=== PATIENT | female | born 1985 | race American Indian/Alaskan Native ===

== ENCOUNTER 2016-06-23 21:18 | Emergency (ER) | payer MEDICAID, OTHER ==
[2016-06-23 21:28] VITALS: BP 179/94
[2016-06-23] MEDS ORDERED: MVI, Adult with Vitamin K 10 ML, Thiamine 100 MG, Folic Acid 1 MG in Lactated Ringers 1... IV ONE ×4 (21:28)
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
[2016-06-23 22:05] LABS: CHLORIDE,CL 100 mmol/L (101-111); SODIUM,NA 141 mmol/L (135-145)
[2016-06-23 22:09] LABS: ACETAMINOPHEN < 10
[2016-06-23] MEDS ORDERED: Iopamidol 612 MG/ML 100 ML Bottle IVPUSH ONE (22:19)
== END 2016-06-23 23:49 | disposition home or self-care (01) ==
LOC: DL.ED 21:18
DX: R10.84 Generalized abdominal pain (principal); F15.10 Other stimulant abuse, uncomplicated; F10.10 Alcohol abuse, uncomplicated; F41.9 Anxiety disorder, unspecified; E66.9 Obesity, unspecified; Z79.899 Other long term (current) drug therapy; Z87.891 Personal history of nicotine dependence; Z91.09 Other allergy status, other than to drugs and biological substances
CPT/HCPCS: 36415; 74177; 80053; 80305; 81001; 81025; 82140; 82150; 83690; 83735; 85025; 96365; 99285; G0480; J3411; J7120; Q9967; J3490

== ENCOUNTER 2016-11-11 16:48 | Emergency (ER) | payer MEDICAID, OTHER ==
[2016-11-11] MEDS ORDERED: Albuterol/Ipratropium 3.0-0.5 MG/3 ML Neb Soln NEB ONE (16:55)
--- NOTE | 2016-11-11 16:56 | EDM.PDOC ---
ED HPI GENERAL MEDICAL PROBLEM - General Chief Complaint: General Stated Complaint: COUGHING Time Seen by Provider: 11/11/16 16:56 Source of Information: Reports: Patient History Limitations: Reports: No Limitations - History of Present Illness INITIAL COMMENTS - FREE TEXT/NARRATIVE: 31 yo Ste[place]ins Female c/o two weeks of cough also smokes cigarettes Onset Date: 10/28/16 Onset Time: 12:00 Duration: Day(s): Location: Reports: Chest Severity: Moderate Improves with: Reports: None Worsens with: Reports: None Associated Symptoms: Reports: Cough Bilateral Lower Chest Pain Score (Numeric/FACES): 5 - Related Data Allergies Allergy/AdvReac Type Severity Reaction Status Date / Time lactose Allergy Abdominal Verified 11/11/16 16:56 Cramps Home Meds: Home Meds Multivitamin W/Iron, Minerals [Compete] 1 tab PO DAILY 02/20/16 [History] Codeine/Promethazine [Phenergan with Codeine] 5 ml PO Q8H PRN 11/11/16 [History] Doxycycline [Vibramycin] 100 mg PO BID 11/11/16 [History] Past Medical History - Past Health History Medical/Surgical History: Denies Medical/Surgical History Psychiatric History: Reports: Anxiety Endocrine/Metabolic History: Reports: Obesity/BMI 30+ Dermatologic History: Reports: Other (See Below) Other Dermatologic History: alopecia - Infectious Disease History Infectious Disease History: Reports: Hepatitis C - Past Surgical History HEENT Surgical History: Reports: Other (See Below) GI Surgical History: Reports: Other (See Below) Social & Family History - Family History Family Medical History: Noncontributory - Tobacco Use Smoking Status *Q: Former Smoker Years of Tobacco use: 5 Packs/Tins Daily: 0.4 Used Tobacco, but Quit: Yes Month Tobacco Last Used: January 2016 Second Hand Smoke Exposure: Yes - Caffeine Use Caffeine Use: Reports: Energy Drinks Caffeine Use Comment: rarely - Alcohol Use Days Per Week of Alcohol Use: 1 Number of Drinks Per Day: 6 Total Drinks Per Week: 6 - Recreational Drug Use Recreational Drug Use: No Recreational Drug Type: Reports: Methamphetamine Recreational Drug Use Frequency: Rarely - Living Situation & Occupation Living situation: Reports: with Family ED ROS GENERAL - Review of Systems Review Of Systems: See Below Constitutional: Reports: No Symptoms HEENT: Reports: No Symptoms Respiratory: Reports: Cough Cardiovascular: Reports: No Symptoms Endocrine: Reports: No Symptoms GI/Abdominal: Reports: No Symptoms : Reports: No Symptoms Musculoskeletal: Reports: No Symptoms Skin: Reports: No Symptoms Neurological: Reports: No Symptoms Psychiatric: Reports: No Symptoms Hematologic/Lymphatic: Reports: No Symptoms Immunologic: Reports: No Symptoms ED EXAM, GENERAL - Physical Exam Exam: See Below Exam Limited By: No Limitations General Appearance: Alert, WD/WN, No Apparent Distress Eye Exam: Bilateral Eye: EOMI, PERRL Ears: Normal External Exam Nose: Normal Inspection Throat/Mouth: Normal Inspection Head: Atraumatic Neck: Normal Inspection Respiratory/Chest: No Accessory Muscle Use, Rhonchi Cardiovascular: Normal Peripheral Pulses GI/Abdominal: Normal Bowel Sounds Back Exam: Normal Inspection Extremities: Normal Inspection Neurological: Alert, Oriented, CN II-XII Intact Psychiatric: Normal Affect Skin Exam: Warm, Dry Lymphatic: No Adenopathy Course - Vital Signs Last Recorded V/S: Last Vital Signs Temp 36.6 C 11/11/16 16:58 Pulse 98 11/11/16 17:06 Resp 18 11/11/16 16:58 BP 129/82 11/11/16 16:58 Pulse Ox 98 11/11/16 16:58 - Orders/Labs/Meds Orders: Active Orders 24 hr Category Date Time Status RT Aerosol Therapy [RC] ASDIRECTED Care 11/11/16 16:56 Active Chest 2V [CR] Urgent Exams 11/11/16 16:55 Taken Meds: Medications Discontinued Medications Generic Name Dose Route Start Last Admin Trade Name Javi PRN Reason Stop Dose Admin Albuterol/Ipratropium 3 ml 11/11/16 16:55 11/11/16 17:05 Duoneb 3.0-0.5 Mg/3 Ml NEB 11/11/16 16:56 3 ml ONETIME ONE Administration Azithromycin 500 mg 11/11/16 17:19 Zithromax PO 11/11/16 17:20 ONETIME ONE Departure - Departure Time of Disposition: 17:22 Disposition: Home, Self-Care 01 Condition: Good Clinical Impression: Bronchitis, Tobacco abuse - Discharge Information Forms: ED Department Discharge Additional Instructions: Stop Smoking Increase intake of Water and Juice Take Medication as prescribed only: Zithromax 250mg QD #4 Mucinex 600mg BID # 30 ProAir MDI 2puffs Q 4hrs. F/U w/ PCP - My Orders Last 24 Hours: My Active Orders 11/11/16 16:55 Chest 2V [CR] Urgent 11/11/16 16:56 RT Aerosol Therapy [RC] ASDIRECTED - Assessment/Plan Last 24 Hours: My Active Orders 11/11/16 16:55 Chest 2V [CR] Urgent 11/11/16 16:56 RT Aerosol Therapy [RC] ASDIRECTED
[2016-11-11 17:03] VITALS: BP 129/82
[2016-11-11] MEDS ORDERED: Azithromycin 250 MG Tab PO ONE (17:19)
== END 2016-11-11 17:37 | disposition home or self-care (01) ==
LOC: DL.ED 16:48
DX: J40 Bronchitis, not specified as acute or chronic (principal); E11.9 Type 2 diabetes mellitus without complications; F41.9 Anxiety disorder, unspecified; Z72.0 Tobacco use; Z91.011 Allergy to milk products; Z79.899 Other long term (current) drug therapy; Z87.891 Personal history of nicotine dependence
CPT/HCPCS: 71020; 94640; 99284; A9270

== ENCOUNTER 2017-02-22 21:58 | Emergency (ER) | payer MEDICAID, OTHER ==
[2017-02-22 22:05] VITALS: BP 157/96
[2017-02-22] MEDS ORDERED: Bacitracin Oint 1 GM U/D Packet TOP ONE (22:16)
[2017-02-22] MEDS ORDERED: Lidocaine 1% 30 ML SDV INJECT ONE (22:16)
[2017-02-22] MEDS ORDERED: Diphtheria,Pertussis(Acell),Tetanus Vaccine 0.5 ML SDV IM ONE (22:16)
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
[2017-02-22] MEDS ORDERED: Amoxicillin/Clavulanate K 875-125 MG Tab PO ONE (23:02)
== END 2017-02-22 23:16 | disposition home or self-care (01) ==
LOC: DL.ED 21:58
DX: S81.852A Open bite, left lower leg, initial encounter (principal); S81.851A Open bite, right lower leg, initial encounter; F17.210 Nicotine dependence, cigarettes, uncomplicated; Z23 Encounter for immunization; Z91.018 Allergy to other foods; W54.0XXA Bitten by dog, initial encounter
CPT/HCPCS: 12005; 90471; 90715; 99283; A9270; 12032

== ENCOUNTER 2017-03-06 15:30 | Emergency (ER) | payer MEDICAID, OTHER ==
[2017-03-06 15:48] VITALS: BP 159/61
--- NOTE | 2017-03-06 16:42 | EDM.PDOC ---
ED HPI GENERAL MEDICAL PROBLEM - General Chief Complaint: Wound Recheck Stated Complaint: [id number] DOG BITE Time Seen by Provider: 03/06/17 15:55 Source of Information: Reports: Patient History Limitations: Reports: No Limitations - History of Present Illness INITIAL COMMENTS - FREE TEXT/NARRATIVE: This 31 yo female patient reports to the ED to get her sutures removed. The patient was bitten by a dog 12 days ago and has not been able to get into the clinic to have the sutures removed. The patient reports that she took the antibiotics as directed. Onset: Today Location: Reports: Lower Extremity, Left, Lower Extremity, Right Quality: Reports: Ache, Dull Severity: Moderate Improves with: Reports: None Worsens with: Reports: None Associated Symptoms: Reports: No Other Symptoms Bilateral Lower Pain Score (Numeric/FACES): 7 - Related Data Allergies Allergy/AdvReac Type Severity Reaction Status Date / Time lactose Allergy Abdominal Verified 02/22/17 22:05 Cramps Home Meds: Home Meds . [No Known Home Meds] 03/06/17 [History] Past Medical History - Past Health History Medical/Surgical History: Denies Medical/Surgical History Psychiatric History: Reports: Anxiety Endocrine/Metabolic History: Reports: Obesity/BMI 30+ Dermatologic History: Reports: Other (See Below) Other Dermatologic History: alopecia - Infectious Disease History Infectious Disease History: Reports: Hepatitis C - Past Surgical History HEENT Surgical History: Reports: Other (See Below) GI Surgical History: Reports: Other (See Below) Social & Family History - Family History Family Medical History: Noncontributory - Tobacco Use Smoking Status *Q: Current Every Day Smoker Years of Tobacco use: 3 Packs/Tins Daily: 0.5 Used Tobacco, but Quit: Yes Month Tobacco Last Used: January 2016 Second Hand Smoke Exposure: Yes - Caffeine Use Caffeine Use: Reports: Coffee, Energy Drinks, Tea Caffeine Use Comment: rarely - Alcohol Use Days Per Week of Alcohol Use: 1 Number of Drinks Per Day: 6 Total Drinks Per Week: 6 - Recreational Drug Use Recreational Drug Use: No Recreational Drug Type: Reports: Methamphetamine Recreational Drug Use Frequency: Rarely - Living Situation & Occupation Living situation: Reports: with Family ED ROS GENERAL - Review of Systems Review Of Systems: ROS reveals no pertinent complaints other than HPI. ED EXAM, SKIN/RASH Exam: See Below Exam Limited By: No Limitations General Appearance: Alert, WD/WN, Mild Distress Eye Exam: Bilateral Eye: EOMI, Normal Inspection, PERRL Ears: Normal External Exam, Normal Canal, Hearing Grossly Normal, Normal TMs Nose: Normal Inspection, Normal Mucosa, No Blood Throat/Mouth: Normal Inspection, Normal Lips, Normal Teeth, Normal Gums, Normal Oropharynx, Normal Voice, No Airway Compromise Head: Atraumatic, Normocephalic Neck: Normal Inspection, Supple, Non-Tender, Full Range of Motion Respiratory/Chest: No Respiratory Distress, Lungs Clear, Normal Breath Sounds, No Accessory Muscle Use, Chest Non-Tender Cardiovascular: Normal Peripheral Pulses, Regular Rate, Rhythm, No Edema, No Gallop, No JVD, No Murmur, No Rub GI/Abdominal: Normal Bowel Sounds, Soft, Non-Tender, No Organomegaly, No Distention, No Abnormal Bruit, No Mass (Female) Exam: Deferred Rectal (Female) Exam: Deferred Back Exam: Normal Inspection, Full Range of Motion, NT Neurological: Alert, Oriented, CN II-XII Intact, Normal Cognition, Normal Gait, Normal Reflexes, No Motor/Sensory Deficits Skin: Erythema, Increased Warmth Location, Skin: Lower Extremity, Right, Lower Extremity, Left Characteristics: Erythematous Associated features: Warmth, Tenderness Lymphatic: No Adenopathy Comments: Sutures were removed with some purulent drainage from the wound. After the sutures were removed, steri-strips were placed over the wounds. Course - Vital Signs Last Recorded V/S: Last Vital Signs Temp 36.9 C 03/06/17 15:46 Pulse 105 H 03/06/17 15:46 Resp 16 03/06/17 15:46 BP 159/61 H 03/06/17 15:46 Pulse Ox 99 03/06/17 15:46 Departure - Departure Time of Disposition: 16:40 Disposition: Home, Self-Care 01 Condition: Fair Clinical Impression: Visit for suture removal Cellulitis Qualifiers: Site of cellulitis: extremity Site of cellulitis of extremity: lower extremity Laterality: unspecified laterality Qualified Code(s): L03.119 - Cellulitis of unspecified part of limb - Discharge Information Instructions: Suture Removal, Care After Care Plan Goals: The patient was advised of the examination results during the visit. The sutures were removed without incident. The patient was given a script for clindamycin (300 mg) to take 1 by mouth 4 times per day for 10 days. If the patient has any additional symptoms or further concerns, the patient should visit her primary care facility or return to the ED.
== END 2017-03-06 17:15 | disposition home or self-care (01) ==
LOC: DL.ED 15:30
DX: S81.812D Laceration without foreign body, left lower leg, subsequent encounter (principal); L03.116 Cellulitis of left lower limb; F17.210 Nicotine dependence, cigarettes, uncomplicated; Z91.011 Allergy to milk products; W54.0XXD Bitten by dog, subsequent encounter
CPT/HCPCS: 99281

== ENCOUNTER 2017-03-30 21:00 | Emergency (ER) | payer OTHER ==
[2017-03-30] MEDS ORDERED: Sulfamethoxazole/Trimethoprim 800-160 MG Tab PO ONE (21:01)
[2017-03-30] MEDS ORDERED: Cephalexin 500 MG Cap PO ONE (21:01)
[2017-03-30] MEDS ORDERED: diphenhydrAMINE 50 MG/ML SDV IVPUSH ONE (21:40)
--- NOTE | 2017-03-30 21:41 | EDM.PDOC ---
ED HPI GENERAL MEDICAL PROBLEM - General Chief Complaint: Skin Complaint Stated Complaint: DOG BITES ON LEG, [id number] Time Seen by Provider: 03/30/17 21:15 Source of Information: Reports: Patient History Limitations: Reports: No Limitations - History of Present Illness INITIAL COMMENTS - FREE TEXT/NARRATIVE: ED ambulatory with sister. C/O pain and swelling to left calf, Notes wound from dog bite one moth ago increasing in size. Sister notes patient had been doing dressing changes up to about week ago and stopped. Had been on antibiotics and recently out also. Has not been seen in clinic for follow up. Left Lower Leg Pain Score (Numeric/FACES): 6 - Related Data Allergies Allergy/AdvReac Type Severity Reaction Status Date / Time lactose Allergy Abdominal Verified 03/30/17 21:18 Cramps Home Meds: Home Meds . [No Known Home Meds] 03/06/17 [History] Past Medical History - Past Health History Medical/Surgical History: Denies Medical/Surgical History Psychiatric History: Reports: Anxiety Endocrine/Metabolic History: Reports: Obesity/BMI 30+ Dermatologic History: Reports: Other (See Below) Other Dermatologic History: alopecia - Infectious Disease History Infectious Disease History: Reports: Hepatitis C - Past Surgical History HEENT Surgical History: Reports: Other (See Below) GI Surgical History: Reports: Other (See Below) Social & Family History - Family History Family Medical History: Noncontributory - Tobacco Use Smoking Status *Q: Current Every Day Smoker Years of Tobacco use: 15 Packs/Tins Daily: 0.3 Used Tobacco, but Quit: Yes Month Tobacco Last Used: January 2016 Second Hand Smoke Exposure: Yes - Caffeine Use Caffeine Use: Reports: None Caffeine Use Comment: rarely - Alcohol Use Days Per Week of Alcohol Use: 2 Number of Drinks Per Day: 6 Total Drinks Per Week: 12 - Recreational Drug Use Recreational Drug Use: No Recreational Drug Type: Reports: Methamphetamine Recreational Drug Use Frequency: Rarely - Living Situation & Occupation Living situation: Reports: with Family ED ROS GENERAL - Review of Systems Review Of Systems: See Below Constitutional: Reports: Fever HEENT: Reports: No Symptoms Respiratory: Reports: No Symptoms Cardiovascular: Reports: No Symptoms GI/Abdominal: Reports: Constipation : Reports: No Symptoms Musculoskeletal: Reports: Leg Pain (left calf) Skin: Reports: Wound (left claf, previous dog bite) Neurological: Reports: No Symptoms ED EXAM, SKIN/RASH Exam: See Below Exam Limited By: No Limitations General Appearance: Alert, No Apparent Distress, Other (intoxicated, storng odor ETOH) Ears: Normal External Exam Nose: Nasal Deformity Throat/Mouth: Normal Inspection Head: Atraumatic, Normocephalic Neck: Normal Inspection, Full Range of Motion Respiratory/Chest: No Respiratory Distress, Lungs Clear, Normal Breath Sounds Cardiovascular: Normal Peripheral Pulses, Regular Rate, Rhythm GI/Abdominal: Normal Bowel Sounds, Soft Extremities: Leg Pain Neurological: Alert, Oriented, Normal Cognition Psychiatric: Normal Affect Skin: Warm, Dry, Wound/Incision (3 2x2cm crater wounds, crusted, scant yellow discharge foul odor mild surrounding erythema, no streaking, minimal swelling of posterior calf ) Associated features: Tenderness, Crusting, Weeping Course - Vital Signs Last Recorded V/S: Last Vital Signs Temp 97.9 F 03/30/17 23:30 Pulse 96 03/30/17 23:30 Resp 18 03/30/17 23:30 BP 139/84 03/30/17 23:30 Pulse Ox 97 03/30/17 23:30 - Orders/Labs/Meds Orders: Active Orders 24 hr Category Date Time Status CULTURE BLOOD [BC] Stat Lab 03/30/17 21:45 Received CULTURE BLOOD [BC] Stat Lab 03/30/17 21:50 Received CULTURE WOUND [RM] Stat Lab 03/30/17 21:35 Received Blood Culture x2 Reflex Set [OM.PC] Stat Oth 03/30/17 21:39 Ordered Labs: Laboratory Tests 03/30/17 03/30/17 03/30/17 Range/Units 21:45 21:45 21:45 WBC 6.0 (5.0-10.0) 10^3/uL RBC 4.31 (4.2-5.4) 10^6/uL Hgb 12.7 (12.0-16.0) g/dL Hct 38.6 (37.0-47.0) % MCV 89.6 D (80-100) fL MCH 29.5 (27.0-34.0) pg MCHC 32.9 L (33.0-35.0) g/dL Plt Count 335 D (150-450) 10^3/uL Neut % (Auto) 37.5 L (42.2-75.2) % Lymph % (Auto) 55.1 H (20.5-50.1) % [place] % (Auto) 4.5 (2-8) % Eos % (Auto) 2.2 (1.0-3.0) % Baso % (Auto) 0.7 (0.0-1.0) % Sodium 141 (135-145) mmol/L Potassium 3.5 L (3.6-5.0) mmol/L Chloride 104 (101-111) mmol/L Carbon Dioxide 24.0 (21.0-31.0) mmol/L Anion Gap 16.5 BUN 8 (7-18) mg/dL Creatinine 0.6 (0.6-1.3) mg/dL Est Cr Clr Drug Dosing 118.68 mL/min Estimated GFR (MDRD) > 60 BUN/Creatinine Ratio 13.33 Glucose 117 H (74-105) mg/dL Lactic Acid 2.2 (0.5-2.2) mmol/L Calcium 8.8 (8.4-10.2) mg/dl Magnesium 1.8 (1.8-2.5) mg/dL Total Bilirubin 0.6 (0.2-1.0) mg/dL AST 43 H (10-42) IU/L ALT 35 (10-60) IU/L Alkaline Phosphatase 107 (42-121) IU/L Total Protein 7.8 (6.7-8.2) g/dl Albumin 4.4 (3.2-5.5) g/dl Globulin 3.4 Albumin/Globulin Ratio 1.29 Urine Color (YELLOW) Urine Appearance (CLEAR) Urine pH (5.0-9.0) Ur Specific [place] (1.005-1.030) Urine Protein (NEGATIVE) Urine Glucose (UA) (NEGATIVE) Urine Ketones (NEGATIVE) Urine Occult Blood (NEGATIVE) Urine Nitrite (NEGATIVE) Urine Bilirubin (NEGATIVE) Urine Urobilinogen (0.2-1.0) mg/dL Ur Leukocyte Esterase (NEGATIVE) Urine RBC /HPF Urine WBC (0-5/HPF) /HPF Ur Epithelial Cells /HPF Urine Bacteria (0-FEW/HPF) /HPF Urine Opiates Screen (NEGATIVE) Ur Oxycodone Screen (NEGATIVE) Urine Methadone Screen (NEGATIVE) Ur Barbiturates Screen (NEGATIVE) U Tricyclic Antidepress (NEGATIVE) Ur Phencyclidine Scrn (NEGATIVE) Ur Amphetamine Screen (NEGATIVE) U Methamphetamines Scrn (NEGATIVE) Urine MDMA Screen (NEGATIVE) U Benzodiazepines Scrn (NEGATIVE) Urine Cocaine Screen (NEGATIVE) U Marijuana (THC) Screen (NEGATIVE) Ethyl Alcohol 357 mg/dL 03/30/17 03/30/17 Range/Units 21:59 21:59 WBC (5.0-10.0) 10^3/uL RBC (4.2-5.4) 10^6/uL Hgb (12.0-16.0) g/dL Hct (37.0-47.0) % MCV (80-100) fL MCH (27.0-34.0) pg MCHC (33.0-35.0) g/dL Plt Count (150-450) 10^3/uL Neut % (Auto) (42.2-75.2) % Lymph % (Auto) (20.5-50.1) % [place] % (Auto) (2-8) % Eos % (Auto) (1.0-3.0) % Baso % (Auto) (0.0-1.0) % Sodium (135-145) mmol/L Potassium (3.6-5.0) mmol/L Chloride (101-111) mmol/L Carbon Dioxide (21.0-31.0) mmol/L Anion Gap BUN (7-18) mg/dL Creatinine (0.6-1.3) mg/dL Est Cr Clr Drug Dosing mL/min Estimated GFR (MDRD) BUN/Creatinine Ratio Glucose (74-105) mg/dL Lactic Acid (0.5-2.2) mmol/L Calcium (8.4-10.2) mg/dl Magnesium (1.8-2.5) mg/dL Total Bilirubin (0.2-1.0) mg/dL AST (10-42) IU/L ALT (10-60) IU/L Alkaline Phosphatase (42-121) IU/L Total Protein (6.7-8.2) g/dl Albumin (3.2-5.5) g/dl Globulin Albumin/Globulin Ratio Urine Color Yellow (YELLOW) Urine Appearance Clear (CLEAR) Urine pH 6.0 (5.0-9.0) Ur Specific [place] 1.015 (1.005-1.030) Urine Protein Trace H (NEGATIVE) Urine Glucose (UA) Negative (NEGATIVE) Urine Ketones Negative (NEGATIVE) Urine Occult Blood Negative (NEGATIVE) Urine Nitrite Negative (NEGATIVE) Urine Bilirubin Negative (NEGATIVE) Urine Urobilinogen 0.2 (0.2-1.0) mg/dL Ur Leukocyte Esterase Negative (NEGATIVE) Urine RBC 0-5 /HPF Urine WBC 0-5 (0-5/HPF) /HPF Ur Epithelial Cells Few /HPF Urine Bacteria Few (0-FEW/HPF) /HPF Urine Opiates Screen Negative (NEGATIVE) Ur Oxycodone Screen Negative (NEGATIVE) Urine Methadone Screen Negative (NEGATIVE) Ur Barbiturates Screen Negative (NEGATIVE) U Tricyclic Antidepress Negative (NEGATIVE) Ur Phencyclidine Scrn Negative (NEGATIVE) Ur Amphetamine Screen Negative (NEGATIVE) U Methamphetamines Scrn Positive H (NEGATIVE) Urine MDMA Screen Negative (NEGATIVE) U Benzodiazepines Scrn Negative (NEGATIVE) Urine Cocaine Screen Negative (NEGATIVE) U Marijuana (THC) Screen Negative (NEGATIVE) Ethyl Alcohol mg/dL Meds: Medications Discontinued Medications Generic Name Dose Route Start Last Admin Trade Name Javi PRN Reason Stop Dose Admin Cephalexin Confirm 03/30/17 23:24 03/30/17 23:38 Keflex Administered 03/30/17 23:25 Not Given Dose 1,500 mg .ROUTE .STK-MED ONE Diphenhydramine HCl 25 mg 03/30/17 21:40 03/30/17 21:52 Benadryl IVPUSH 03/30/17 21:41 25 mg ONETIME ONE Administration Vancomycin HCl 1 gm/ Sodium 250 mls @ 167 mls/hr 03/30/17 21:39 03/30/17 22: 52 Chloride IV 03/30/17 23:08 Not Given ONETIME ONE Piperacillin Sod/Tazobactam 100 mls @ 200 mls/hr 03/30/17 22:10 03/30/17 22: 22 Sod 3.375 gm/ Sodium Chloride IV 03/30/17 22:39 200 mls/hr ONETIME ONE Administration Trimethoprim/Sulfamethoxazole Confirm 03/30/17 23:24 03/30/17 23:38 Septra Ds Administered 03/30/17 23:25 Not Given Dose 2 tab .ROUTE .STK-MED ONE - Re-Assessments/Exams Free Text/Narrative Re-Assessment/Exam: 03/31/17 00:22 wounds cleansed, culture obtained, moist dressing placed by nursing. Instructions to patient and to sister to redress at least twice daily and to follow up in clinic on Saturday. Depth of wound appears to be increasing and Sister informed she may need more extensive debridement and wound care follow up if antibiotic and resuming dressing changes does not improve area. Sister acknowledges, and relates she will have her in to clinic on Saturday. Departure - Departure Time of Disposition: 23:08 Disposition: Home, Self-Care 01 Condition: Fair Clinical Impression: Alcohol abuse, Open wound Dog bite Qualifiers: Encounter type: initial encounter Qualified Code(s): W54.0XXA - Bitten by dog, initial encounter Cellulitis Qualifiers: Site of cellulitis: extremity Site of cellulitis of extremity: lower extremity Laterality: unspecified laterality Qualified Code(s): L03.119 - Cellulitis of unspecified part of limb - Discharge Information Instructions: Wound Infection, [id number] Referrals: Johnny Garcia [Primary Care Provider] - Forms: ED Department Discharge Additional Instructions: moist dressing change twice daily Clinic follow up on Saturday to recheck wounds urgent follow up if increased redness swelling drainage Bactrim DS one twice daily for 7 days Keflex 500mg 4 times daily for 7days tylenol or ibuprofen for discomfort - My Orders Last 24 Hours: My Active Orders 03/30/17 21:35 CULTURE WOUND [RM] Stat 03/30/17 21:39 Blood Culture x2 Reflex Set [OM.PC] Stat 03/30/17 21:45 CULTURE BLOOD [BC] Stat 03/30/17 21:50 CULTURE BLOOD [BC] Stat - Assessment/Plan Last 24 Hours: My Active Orders 03/30/17 21:35 CULTURE WOUND [RM] Stat 03/30/17 21:39 Blood Culture x2 Reflex Set [OM.PC] Stat 03/30/17 21:45 CULTURE BLOOD [BC] Stat 03/30/17 21:50 CULTURE BLOOD [BC] Stat
[2017-03-30] MEDS ORDERED: Piperacillin/Tazobactam 3.375 GM in Sodium Chloride 0.9% 100 ML IV ONE (22:10)
[2017-03-30 22:24] LABS: CHLORIDE,CL 104 mmol/L (101-111); SODIUM,NA 141 mmol/L (135-145)
[2017-03-30] MEDS ORDERED: Cephalexin 500 MG Cap ONE (23:24)
[2017-03-30] MEDS ORDERED: Sulfamethoxazole/Trimethoprim 800-160 MG Tab ONE (23:24)
[2017-03-30 23:39] VITALS: BP 139/84
== END 2017-03-30 23:32 | disposition home or self-care (01) ==
LOC: DL.ED 21:00
DX: S81.852A Open bite, left lower leg, initial encounter (principal); L03.116 Cellulitis of left lower limb; F10.10 Alcohol abuse, uncomplicated; F17.210 Nicotine dependence, cigarettes, uncomplicated; Z91.011 Allergy to milk products; W54.0XXA Bitten by dog, initial encounter
CPT/HCPCS: 36415; 80053; 80305; 81001; 83605; 83735; 85025; 87040; 87070; 96365; 96375; 99284; G0480; J1200; J2543; J7050; 87077; 87186; A9270-GY

== ENCOUNTER 2017-04-27 06:40 | Emergency (ER) | payer OTHER ==
[2017-04-27 06:53] VITALS: BP 131/71
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
[2017-04-27] MEDS ORDERED: Sodium Chloride 0.9% 10 ML Syringe FLUSH PRN (07:15)
[2017-04-27 08:19] LABS: ANION GAP 10.5; CHLORIDE,CL 102 mmol/L (101-111); SODIUM,NA 131 mmol/L (135-145)
[2017-04-27] MEDS ORDERED: Iopamidol 612 MG/ML 100 ML Bottle IVPUSH ONE (08:54)
[2017-04-27] MEDS ORDERED: Ketorolac 30 MG/ML SDV IVPUSH ONE (09:39)
== END 2017-04-27 10:06 | disposition home or self-care (01) ==
LOC: DL.ED 06:40
DX: S30.1XXA Contusion of abdominal wall, initial encounter (principal); F17.210 Nicotine dependence, cigarettes, uncomplicated; Z91.011 Allergy to milk products; Y09 Assault by unspecified means
CPT/HCPCS: 36415; 71111; 74177; 80053; 80305; 81001; 81025; 85025; 96374; 99284; J1885; J7050; Q9967

== ENCOUNTER 2018-07-15 19:19 | Emergency (ER) | payer MEDICAID, OTHER ==
[2018-07-15 19:28] VITALS: BP 114/85
[2018-07-15] MEDS ORDERED: Albuterol/Ipratropium 3.0-0.5 MG/3 ML Neb Soln NEB ONE (19:59)
[2018-07-15] MEDS ORDERED: Benzonatate 100 MG Cap PO ONE (19:59)
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
[2018-07-15] MEDS ORDERED: Albuterol 6.7 GM Inhaler INH ONE (20:44)
[2018-07-15] MEDS ORDERED: Benzonatate 100 MG Cap ONE (20:44)
== END 2018-07-15 20:50 | disposition home or self-care (01) ==
LOC: DL.ED 19:19
DX: J40 Bronchitis, not specified as acute or chronic (principal); Z77.22 Contact with and (suspected) exposure to environmental tobacco smoke (acute) (chronic); Z91.011 Allergy to milk products
CPT/HCPCS: 87081; 87430; 87804; 99283; A9270; J7620-GY

== ENCOUNTER 2018-11-17 12:38 | Emergency (ER) | payer MEDICAID ==
[2018-11-17 13:03] LABS: ANION GAP 19.2; CHLORIDE,CL 95 mmol/L (101-111); SODIUM,NA 139 mmol/L (135-145)
[2018-11-17] MEDS ORDERED: MVI, Adult with Vitamin K 10 ML, Folic Acid 1 MG, Thiamine 100 MG in Lactated Ringers 1... IV ONE ×4 (13:16)
[2018-11-17] MEDS ORDERED: LORazepam 2 MG/ML Syringe IVPUSH ONE (13:16)
[2018-11-17] MEDS ORDERED: Potassium Chloride 20 MEQ in Premix Bag 1 BAG IV ONE (13:17)
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
[2018-11-17] MEDS: Sodium Chloride 0.9% 10 ML Syringe FLUSH PRN ×2 (13:36→13:38)
[2018-11-17 13:41] VITALS: BP 130/73
== END 2018-11-17 14:16 ==
LOC: DL.ED 12:38
DX: F10.231 Alcohol dependence with withdrawal delirium (principal); Y90.0 Blood alcohol level of less than 20 mg/100 ml; E87.6 Hypokalemia; Z91.011 Allergy to milk products
CPT/HCPCS: 36415; 80053; 80305-QW; 81001; 81025; 85025; 87086; 96365; 96368; 96375; 99285-25; G0480; J2060; J3411; J3480; J3490; J7120

== ENCOUNTER 2019-10-15 16:36 | Observation (INO) | payer MEDICAID ==
[2019-10-15] MEDS ORDERED: Acetaminophen 325 MG Tab PO PRN (17:00)
[2019-10-15] MEDS ORDERED: Ondansetron 4 MG Tab.DIS PO PRN (17:00)
[2019-10-15] MEDS ORDERED: Ondansetron 4 MG/2 ML SDV IVPUSH PRN (17:00)
[2019-10-15] MEDS ORDERED: Cyclobenzaprine 10 MG Tab PO PRN (17:06)
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
[2019-10-15 18:02] LABS: ANION GAP 10.7 mEq/L (7-13); CHLORIDE,CL 103 mmol/L (98-107); SODIUM,NA 141 mmol/L (136-145)
[2019-10-15] MEDS ORDERED: Vancomycin 1.75 GM in Sodium Chloride 0.9% 500 ML IV ONE (18:15)
[2019-10-15] MEDS: Piperacillin/Tazobactam 3.375 GM in Sodium Chloride 0.9% 100 ML IV SCH ×2 (18:43→23:03)
[2019-10-16] MEDS: Piperacillin/Tazobactam 3.375 GM in Sodium Chloride 0.9% 100 ML IV SCH ×4 (05:02→23:07)
[2019-10-16] MEDS ORDERED: Vancomycin 1.75 GM in Sodium Chloride 0.9% 500 ML IV SCH (06:00)
[2019-10-16] MEDS ORDERED: Vancomycin 1 GM, Vancomycin 750 MG in Sodium Chloride 0.9% 500 ML IV SCH (08:26)
[2019-10-16] MEDS: Enoxaparin 40 MG/0.4 ML Syringe SUBCUT SCH (09:31)
--- NOTE | 2019-10-16 10:16 | PCM.PN ---
- General Info Date of Service: 10/16/19 Subjective Update: Is a 34-year-old female with medical history of hepatitis C infection. Patient sustained injury to the left leg below the left knee. It became infected. Was evaluated by orthopedic surgery and ruled out compartment syndrome Today, Indicates that she does have pain of the left leg Intensity is about 5 further skilled objective It is dull in nature - Review of Systems General: Reports: Weakness, Malaise HEENT: Reports: No Symptoms Pulmonary: Reports: No Symptoms Cardiovascular: Reports: No Symptoms Musculoskeletal: Reports: Leg Pain - Patient Data Vitals - Most Recent: Last Vital Signs Temp 36.4 C 10/16/19 00:00 Pulse 59 L 10/16/19 00:00 Resp 18 10/16/19 00:00 BP 123/63 10/16/19 00:00 Pulse Ox 99 10/16/19 00:00 Weight - Most Recent: 106.866 kg I&O - Last 24 Hours: Intake & Output 10/15/19 10/16/19 10/16/19 22:59 06:59 14:59 Intake Total 581 200 Output Total 1100 Balance 581 -900 Lab Results Last 24 Hours: Laboratory Results - last 24 hr 10/15/19 10/15/19 10/15/19 Range/Units 17:35 17:35 19:03 WBC 8.4 (5.0-10.0) 10^3/uL RBC 4.10 L (4.2-5.4) 10^6/uL Hgb 12.8 (12.0-16.0) g/dL Hct 40.2 (37.0-47.0) % MCV 98.0 D (80-100) fL MCH 31.2 (27.0-34.0) pg MCHC 31.8 L (33.0-35.0) g/dL Plt Count 240 D (150-450) 10^3/uL Neut % (Auto) 63.6 (42.2-75.2) % Lymph % (Auto) 26.8 (20.5-50.1) % [place] % (Auto) 5.8 (2-8) % Eos % (Auto) 3.2 H (1.0-3.0) % Baso % (Auto) 0.6 (0.0-1.0) % Sodium 141 (136-145) mmol/L Potassium 3.7 (3.5-5.1) mmol/L Chloride 103 (98-107) mmol/L Carbon Dioxide 31 (21-32) mmol/L Anion Gap 10.7 (7-13) mEq/L BUN 14 (7-18) mg/dL Creatinine 0.71 (0.55-1.02) mg/dL Est Cr Clr Drug Dosing 99.52 mL/min Estimated GFR (MDRD) > 60 BUN/Creatinine Ratio 19.7 (No establ ref range) Glucose 75 (74-99) mg/dL Calcium 8.6 (8.5-10.1) mg/dL Total Bilirubin 0.2 (0.2-1.0) mg/dL AST 20 (15-37) U/L ALT 24 (14-59) U/L Alkaline Phosphatase 108 (46-116) U/L Total Protein 7.6 (6.4-8.2) g/dL Albumin 3.5 (3.4-5.0) g/dL Globulin 4.1 Albumin/Globulin Ratio 0.9 Urine HCG, Qual Negative Med Orders - Current: Current Medications Acetaminophen (Tylenol) 650 mg PO Q4H PRN PRN Reason: Pain (Mild 1-3)/fever Cyclobenzaprine HCl (Flexeril) 10 mg PO TID PRN PRN Reason: Muscle Spasm Enoxaparin Sodium (Lovenox) 40 mg SUBCUT DAILY [facility] Last Admin: 10/16/19 09:31 Dose: 40 mg Documented by: Piperacillin Sod/Tazobactam (Sod 3.375 gm/ Sodium Chloride) 100 mls @ 200 mls/hr IV Q6H [facility] Last Admin: 10/16/19 05:02 Dose: 200 mls/hr Documented by: Vancomycin HCl 1 gm/Vancomycin HCl 750 mg/ Sodium Chloride 500 mls @ 333.333 mls/hr IV Q12H [facility] Ondansetron HCl (Zofran Odt) 4 mg PO Q6H PRN PRN Reason: nausea, able to take PO Ondansetron HCl (Zofran) 4 mg IVPUSH Q6H PRN PRN Reason: Nausea/Vomiting Senna/Docusate Sodium (Senna Plus) 1 tab PO BEDTIME PRN PRN Reason: Constipation Vancomycin HCl (Pharmacy To Dose - Vancomycin) 1 dose .XX ASDIRECTED [facility] Discontinued Medications Vancomycin HCl 1.75 gm/ Sodium (Chloride) 500 mls @ 333.333 mls/hr IV ONETIME ONE Stop: 10/15/19 19:44 Last Admin: 10/15/19 19:48 Dose: 333.333 mls/hr Documented by: Vancomycin HCl 1.75 gm/ Sodium (Chloride) 500 mls @ 333.333 mls/hr IV Q12H [facility] Last Admin: 10/16/19 05:40 Dose: 333.333 mls/hr Documented by: Vancomycin HCl 1 gm/Vancomycin HCl 750 mg/ Sodium Chloride 500 mls @ 333.333 mls/hr IV Q12H [facility] Last Admin: 10/16/19 09:55 Dose: Not Given Documented by: - Exam General: Alert, Oriented, Cooperative Neck: Supple Lungs: Clear to Auscultation, Normal Respiratory Effort Cardiovascular: Regular Rate, Regular Rhythm Extremities: Other (Ulcer anterior aspect of left leg. Purulence noted) Sepsis Event Note - Evaluation Sepsis Screening Result: No Definite Risk - Focused Exam Vital Signs: Vital Signs Temp Pulse Resp BP Pulse Ox 10/16/19 00:00 36.4 C 59 L 18 123/63 99 Date Exam was Performed: 10/16/19 Time Exam was Performed: 10:13 - Problem List Review Problem List Initiated/Reviewed/Updated: Yes - My Orders Last 24 Hours: My Active Orders 10/17/19 05:11 BASIC METABOLIC PANEL,BMP [CHEM] AM CBC W/O DIFF,HEMOGRAM [HEME] AM - Plan Plan:: #Cellulitis of the left lower extremity: Patient with an area of redness and swelling of the left lower extremity extending distally from the knee. With associated tenderness. No joint effusion appreciated. Cellulitis was worsening while on Bactrim and Keflex. Continue current antibiotics #Tobacco use disorder: Smoking about 45 cigarettes daily. Smoking cessation counseling #Alcohol use disorder: Patient reports that she drinks about 12 beers on 3 occasions every week. Alcohol cessation counseling provided Still continue to monitor #Obesity: BMI of 38 Weight loss counseling DVT prophylaxis: Lovenox GI prophylaxis: General diet CODE STATUS: Full code per patient preference
[2019-10-16] MEDS: Vancomycin 1 GM, Vancomycin 750 MG in Sodium Chloride 0.9% 500 ML IV SCH (18:34)
[2019-10-17] MEDS: Piperacillin/Tazobactam 3.375 GM in Sodium Chloride 0.9% 100 ML IV SCH ×2 (05:09→10:41)
[2019-10-17] MEDS: Vancomycin 1 GM, Vancomycin 750 MG in Sodium Chloride 0.9% 500 ML IV SCH (05:49)
[2019-10-17 05:54] LABS: ANION GAP 13.2 mEq/L (7-13); CHLORIDE,CL 105 mmol/L (98-107); SODIUM,NA 140 mmol/L (136-145)
[2019-10-17 08:53] VITALS: BP 127/76; PULSE 62
[2019-10-17] MEDS: Enoxaparin 40 MG/0.4 ML Syringe SUBCUT SCH (09:28)
--- NOTE | 2019-10-17 10:06 | PCM.DCSUM1 ---
Discharge Summary - Hospital Course Free Text/Narrative:: Is a 34-year-old female with medical history of hepatitis C infection. Patient sustained injury to the left leg below the left knee. It became infected. Was evaluated by orthopedic surgery and ruled out compartment syndrome #Cellulitis of the left lower extremity: Cellulitis was worsening while on Bactrim and Keflex. #Tobacco use disorder: Smoking about 45 cigarettes daily. Smoking cessation counseling #Alcohol use disorder: Patient reports that she drinks about 12 beers on 3 occasions every week. Alcohol cessation counseling provided Still continue to monitor #Obesity: BMI of 38 Weight loss counseling - Discharge Data Discharge Date: 10/17/19 Discharge Disposition: Home, Self-Care 01 Condition: Good - Referral to Home Health Primary Care Physician: PCP None - Patient Instructions Diet: Usual Diet as Tolerated Activity: As Tolerated Driving: May Drive Today - Discharge Plan Prescriptions/Med Rec: clindamycin HCL [Clindamycin HCl] 300 mg PO TID #21 capsule Home Medications: Home Meds Albuterol [Proair HFA] 1 - 2 puff INH Q6H PRN 10/16/19 [History] Calcium Citrate/Vitamin D3 [Calcium Citrate - Vit D Tablet] 1 each PO BID [History] Cyclobenzaprine [Flexeril] 10 mg PO TID PRN 10/16/19 [History] Ergocalciferol (Vitamin D2) [Vitamin D2] 50,000 unit PO WEEKLY 10/16/19 [History] Multivitamin with Minerals [Multiple Vitamin] 1 tab PO DAILY 10/16/19 [History] Piperonyl Butoxide/Pyrethrins [Gs Lice Killing Shampoo] 118 ml TP DAILY 10/16/19 [History] Thiamine HCl 100 mg PO DAILY 10/16/19 [History] diphenhydrAMINE [Benadryl] 25 mg PO QID 10/16/19 [History] clindamycin HCL [Clindamycin HCl] 300 mg PO TID #21 capsule 10/17/19 [Rx] - Discharge Summary/Plan Comment DC Time >30 min.: No - Patient Data Vitals - Most Recent: Last Vital Signs Temp 36.3 C 10/17/19 08:00 Pulse 62 10/17/19 08:00 Resp 18 10/17/19 08:00 BP 127/76 10/17/19 08:00 Pulse Ox 100 10/17/19 08:00 Weight - Most Recent: 106.866 kg I&O - Last 24 hours: Intake & Output 10/16/19 10/17/19 10/17/19 22:59 06:59 14:59 Intake Total 358 701 120 Output Total 1250 Balance -892 701 120 Lab Results - Last 24 hrs: Laboratory Results - last 24 hr 10/17/19 10/17/19 10/17/19 Range/Units 05:30 05:30 05:30 WBC 5.8 (5.0-10.0) 10^3/uL RBC 3.65 L (4.2-5.4) 10^6/uL Hgb 11.3 L D (12.0-16.0) g/dL Hct 35.3 L (37.0-47.0) % MCV 96.7 (80-100) fL MCH 31.0 (27.0-34.0) pg MCHC 32.0 L (33.0-35.0) g/dL Plt Count 208 (150-450) 10^3/uL Sodium 140 (136-145) mmol/L Potassium 4.2 (3.5-5.1) mmol/L Chloride 105 (98-107) mmol/L Carbon Dioxide 26 (21-32) mmol/L Anion Gap 13.2 H (7-13) mEq/L BUN 15 (7-18) mg/dL Creatinine 0.70 (0.55-1.02) mg/dL Est Cr Clr Drug Dosing 100.94 mL/min Estimated GFR (MDRD) > 60 Glucose 104 H (74-99) mg/dL Calcium 8.1 L (8.5-10.1) mg/dL Vancomycin Trough 17.1 (10.0-20.0) ug/mL ANNIE Results - Last 24 hrs: Microbiology 10/15/19 17:35 Aerobic Blood Culture - Preliminary Blood NO GROWTH AFTER 1 DAY Anaerobic Blood Culture - Preliminary NO GROWTH AFTER 1 DAY Med Orders - Current: Current Medications Acetaminophen (Tylenol) 650 mg PO Q4H PRN PRN Reason: Pain (Mild 1-3)/fever Cyclobenzaprine HCl (Flexeril) 10 mg PO TID PRN PRN Reason: Muscle Spasm Enoxaparin Sodium (Lovenox) 40 mg SUBCUT DAILY ANA M Last Admin: 10/17/19 09:28 Dose: 40 mg Documented by: Piperacillin Sod/Tazobactam (Sod 3.375 gm/ Sodium Chloride) 100 mls @ 200 mls/hr IV Q6H [facility] Last Infusion: 10/17/19 05:48 Dose: Infused Documented by: Ondansetron HCl (Zofran Odt) 4 mg PO Q6H PRN PRN Reason: nausea, able to take PO Ondansetron HCl (Zofran) 4 mg IVPUSH Q6H PRN PRN Reason: Nausea/Vomiting Senna/Docusate Sodium (Senna Plus) 1 tab PO BEDTIME PRN PRN Reason: Constipation Discontinued Medications Vancomycin HCl 1.75 gm/ Sodium (Chloride) 500 mls @ 333.333 mls/hr IV ONETIME ONE Stop: 10/15/19 19:44 Last Admin: 10/15/19 19:48 Dose: 333.333 mls/hr Documented by: Vancomycin HCl 1.75 gm/ Sodium (Chloride) 500 mls @ 333.333 mls/hr IV Q12H [facility] Last Admin: 10/16/19 05:40 Dose: 333.333 mls/hr Documented by: Vancomycin HCl 1 gm/Vancomycin HCl 750 mg/ Sodium Chloride 500 mls @ 333.333 mls/hr IV Q12H [facility] Last Admin: 10/16/19 09:55 Dose: Not Given Documented by: Vancomycin HCl 1 gm/Vancomycin HCl 750 mg/ Sodium Chloride 500 mls @ 333.333 mls/hr IV Q12H [facility] Last Admin: 10/17/19 05:49 Dose: 250 mls/hr Documented by: Vancomycin HCl 1,500 mg/ (Sodium Chloride) 500 mls @ 333.333 mls/hr IV Q12H [facility] Vancomycin HCl (Pharmacy To Dose - Vancomycin) 1 dose .XX ASDIRECTED [facility]
== END 2019-10-17 12:35 | disposition home or self-care (01) ==
LOC: DL.MS 17:00
PROVIDERS: ADMIT Internal Medicine; ATTEND Internal Medicine
DX: L03.116 Cellulitis of left lower limb (principal); F17.210 Nicotine dependence, cigarettes, uncomplicated; S81.012D Laceration without foreign body, left knee, subsequent encounter; F10.10 Alcohol abuse, uncomplicated; E66.9 Obesity, unspecified; Z68.38 Body mass index [BMI] 38.0-38.9, adult; Z79.899 Other long term (current) drug therapy; Z91.011 Allergy to milk products; Z86.19 Personal history of other infectious and parasitic diseases; X58.XXXD Exposure to other specified factors, subsequent encounter
CPT/HCPCS: 36415; 80048; 80053; 80202; 81025; 85025; 85027; 87040; 96361; 96365; 96366; 96367; 96372; G0378; G0379; J1650; J2543; J3370; J7040; J7050; 99217; 99219; 99225

== ENCOUNTER 2019-10-27 00:09 | Emergency (ER) | payer MEDICAID ==
[2019-10-27 00:26] VITALS: BP 131/67; PULSE 78
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
[2019-10-27 01:16] LABS: ACETAMINOPHEN 0 ug/mL (10-30 (Therapeutic)); ANION GAP 15.4 mEq/L (7-13); CHLORIDE,CL 101 mmol/L (98-107); SODIUM,NA 137 mmol/L (136-145)
== END 2019-10-27 01:43 ==
LOC: DL.ED 00:09
DX: F10.20 Alcohol dependence, uncomplicated (principal); F15.90 Other stimulant use, unspecified, uncomplicated; E66.9 Obesity, unspecified; Z91.011 Allergy to milk products; Z68.39 Body mass index [BMI] 39.0-39.9, adult; Y90.7 Blood alcohol level of 200-239 mg/100 ml
CPT/HCPCS: 36415; 80053; 80305-QW; 80307; 81001; 83605; 85025; 87040; 87086; 99282; 99284

== ENCOUNTER 2020-02-08 22:00 | Emergency (ER) | payer MEDICAID ==
[2020-02-08] MEDS ORDERED: Mupirocin Oint 22 GM Tube TOP ONE (22:01)
[2020-02-08] MEDS ORDERED: Clindamycin HCl 150 MG Cap PO ONE (22:01)
[2020-02-08 22:21] VITALS: BP 120/56; PULSE 82
[2020-02-08] MEDS ORDERED: diphenhydrAMINE 50 MG/ML SDV IVPUSH ONE (23:37)
[2020-02-09 00:05] LABS: CHLORIDE,CL 107 mmol/L (98-107); SODIUM,NA 142 mmol/L (136-145)
[2020-02-09 00:25] LABS: ANION GAP 13.8 mEq/L (7-13)
[2020-02-09] MEDS ORDERED: Iopamidol 612 MG/ML 100 ML Bottle IVPUSH ONE (01:13)
--- NOTE | 2020-02-09 03:11 | CT ---
PROCEDURE INFORMATION: Exam: CT Left Lower Extremity With Contrast; Lower Leg Exam date and time: 02/09/2020 1:58 AM Age: 34 years old Clinical indication: Cellulitis; Lower leg; Left; Additional info: Abscess cellulitis mid anterior TECHNIQUE: Imaging protocol: CT of the Left lower extremity with intravenous contrast was performed. Exam focused on the lower leg. Radiation optimization: All CT scans at this facility use at least one of these dose optimization techniques: automated exposure control; mA and/or kV adjustment per patient size (includes targeted exams where dose is matched to clinical indication); or iterative reconstruction. Contrast material: [id number]; Contrast volume: 100 ml; Contrast route: INTRAVENOUS (IV); COMPARISON: No relevant prior studies available. FINDINGS: Bones/joints: No evidence for osteomyelitis or foreign body. Soft tissues: Subcutaneous edema involving the anterior left padgett with skin thickening consistent with mild cellulitis. No discrete abscess or deep infection is noted. IMPRESSION: 1. Focal area of cellulitis involving the anterior padgett but no discrete abscess or fluid collection. 2. No evidence for foreign body or osteomyelitis. 3. Sclerotic changes involving the proximal tibia bilaterally consistent with small bony infarcts.
[2020-02-09] MEDS ORDERED: Mupirocin Oint 22 GM Tube ONE (03:20)
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
[2020-02-09] MEDS ORDERED: Clindamycin HCl 150 MG Cap ONE (03:21)
== END 2020-02-09 03:27 | disposition home or self-care (01) ==
LOC: DL.ED 22:00
DX: S81.802A Unspecified open wound, left lower leg, initial encounter (principal); L03.116 Cellulitis of left lower limb; E66.9 Obesity, unspecified; F17.210 Nicotine dependence, cigarettes, uncomplicated; Z68.41 Body mass index [BMI] 40.0-44.9, adult; Z91.011 Allergy to milk products; X58.XXXA Exposure to other specified factors, initial encounter
CPT/HCPCS: 36415; 73701; 80053; 80307; 82150; 83605; 84703; 85025; 85379; 87070; 96365; 96366; 96375; 99283; 99284; A9270; J1200; J3370; J7040; Q9967

== ENCOUNTER 2020-08-24 16:08 | Emergency (ER) | payer MEDICAID | END 2020-08-24 16:40 | disposition left against medical advice (07) | LOC: DL.ED 16:08 | DX: R51.9 Headache, unspecified (principal); Z53.21 Procedure and treatment not carried out due to patient leaving prior to being seen by health care provider ==

== ENCOUNTER 2021-01-03 00:03 | Emergency (ER) | payer MEDICAID ==
[~2021-01-03 00:03] MED LIST: LORazepam 2 MG/ML SDV IVPUSH ONE
[2021-01-03 00:43] LABS: ANION GAP 30.5 mEq/L (7-13); CHLORIDE,CL 96 mmol/L (98-107); SODIUM,NA 138 mmol/L (136-145)
[2021-01-03 00:43] LABS: AMPHETAMINES,URINE POSITIVE (NEGATIVE); BARBITURATES,URINE NEGATIVE (NEGATIVE); BENZODIAZEPINE,URINE NEGATIVE (NEGATIVE); MDMA (ECSTASY), URINE NEGATIVE (NEGATIVE); METHADONE,URINE NEGATIVE (NEGATIVE); METHAMPHETAMINES,URINE POSITIVE (NEGATIVE); OPIATES,URINE NEGATIVE (NEGATIVE); OXYCODONE,URINE NEGATIVE (NEGATIVE); PHENCYCLIDINE,URINE NEGATIVE (NEGATIVE); TCA,URINE NEGATIVE (NEGATIVE)
[2021-01-03 01:05] LABS: ACETAMINOPHEN 0 ug/mL (10-30 (Therapeutic))
[2021-01-03] MEDS ORDERED: Magnesium Sulfate/D5W 1 GM/100 ML BAG IV ONE (01:08)
[2021-01-03] MEDS ORDERED: Sodium Chloride 0.9% 1,000 ML IV ONE (01:08)
[2021-01-03] MEDS ORDERED: Lactulose Soln 10 GM/15 ML 30 ML UD Cup PO ONE (01:09)
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
[2021-01-03 03:46] VITALS: BP 137/82; PULSE 106
== END 2021-01-03 03:48 ==
LOC: DL.ED 00:03
DX: E83.42 Hypomagnesemia (principal); F15.10 Other stimulant abuse, uncomplicated; F12.90 Cannabis use, unspecified, uncomplicated; E66.9 Obesity, unspecified; Z91.011 Allergy to milk products
CPT/HCPCS: 36415; 80053; 80143; 80305-QW; 80307; 81001; 81025; 82140; 82150; 83690; 83735; 85025; 87086; 96365; 99284-25; A9270-GY; J2060; J3475; J7030

== ENCOUNTER 2021-03-26 02:43 | Emergency (ER) | payer MEDICAID ==
[2021-03-26 02:49] VITALS: BP 165/95; PULSE 102
[2021-03-26 03:31] LABS: ANION GAP 15.6 mEq/L (7-13); CHLORIDE,CL 105 mmol/L (98-107); SODIUM,NA 146 mmol/L (136-145)
[2021-03-26] MEDS ORDERED: MVI, Adult with Vitamin K 10 ML, Thiamine 100 MG, Folic Acid 1 MG in Lactated Ringers 1... IV ONE ×4 (03:48)
[2021-03-26 04:06] LABS: AMPHETAMINES,URINE NEGATIVE (NEGATIVE); BARBITURATES,URINE NEGATIVE (NEGATIVE); BENZODIAZEPINE,URINE NEGATIVE (NEGATIVE); MDMA (ECSTASY), URINE NEGATIVE (NEGATIVE); METHADONE,URINE NEGATIVE (NEGATIVE); METHAMPHETAMINES,URINE NEGATIVE (NEGATIVE); OPIATES,URINE NEGATIVE (NEGATIVE); OXYCODONE,URINE NEGATIVE (NEGATIVE); PHENCYCLIDINE,URINE NEGATIVE (NEGATIVE); TCA,URINE NEGATIVE (NEGATIVE)
== END 2021-03-26 04:30 ==
LOC: DL.ED 02:43
DX: F10.120 Alcohol abuse with intoxication, uncomplicated (principal); R74.8 Abnormal levels of other serum enzymes; I10 Essential (primary) hypertension; E66.9 Obesity, unspecified; Z68.41 Body mass index [BMI] 40.0-44.9, adult; Y90.8 Blood alcohol level of 240 mg/100 ml or more; Z72.0 Tobacco use; Z91.011 Allergy to milk products
CPT/HCPCS: 36415; 80053; 80305-QW; 80307; 81001; 81025; 82150; 83690; 85025; 99284

== ENCOUNTER 2021-06-04 12:51 | Emergency (ER) | payer BC ==
[2021-06-04 14:22] VITALS: BP 133/79; PULSE 69
[2021-06-04 16:22] LABS: ANION GAP 13.9 mEq/L (7-13); CHLORIDE,CL 107 mmol/L (98-107); SODIUM,NA 141 mmol/L (136-145)
[2021-06-04] MEDS ORDERED: Iopamidol 612 MG/ML 100 ML Bottle IVPUSH ONE (16:34)
== END 2021-06-04 18:14 | disposition home or self-care (01) ==
LOC: DL.ED 12:51
DX: R10.13 Epigastric pain (principal); R74.8 Abnormal levels of other serum enzymes; E78.00 Pure hypercholesterolemia, unspecified; I10 Essential (primary) hypertension; E66.9 Obesity, unspecified; Z68.42 Body mass index [BMI] 45.0-49.9, adult; Z91.011 Allergy to milk products
CPT/HCPCS: 36415; 74177; 80053; 82150; 83605; 83690; 84703; 85025; 86140; 99284-25; Q9967

== ENCOUNTER 2021-07-04 04:56 | Day surgery (SDC) | payer BC, MEDICAID ==
[2021-07-04] MEDS ORDERED: fentaNYL 100 MCG/2 ML SDV IV ONE ×3 (04:57→06:45)
[2021-07-04] MEDS ORDERED: Midazolam 1 MG/ML 2 ML SDV IV ONE ×3 (04:57→06:46)
[2021-07-04] MEDS ORDERED: Dextrose 5%-0.45% NaCl 1,000 ML IV SCH (05:30)
[2021-07-04] MEDS ORDERED: fentaNYL 100 MCG/2 ML SDV ONE (06:05)
[2021-07-04] MEDS ORDERED: Midazolam 1 MG/ML 2 ML SDV ONE (06:05)
[2021-07-04 09:04] VITALS: BP 137/56; PULSE 77
== END 2021-07-04 09:00 | disposition home or self-care (01) ==
LOC: DL.ENDO 04:56
PROVIDERS: ATTEND Internal Medicine Gastroenterology
DX: K29.50 Unspecified chronic gastritis without bleeding (principal); B96.81 Helicobacter pylori [H. pylori] as the cause of diseases classified elsewhere; E66.09 Other obesity due to excess calories; D64.9 Anemia, unspecified; Z88.8 Allergy status to other drugs, medicaments and biological substances; Z98.890 Other specified postprocedural states; Z01.812 Encounter for preprocedural laboratory examination; Z20.822 Contact with and (suspected) exposure to COVID-19
CPT/HCPCS: 87077; J2250; J3010; J7042; U0002

== ENCOUNTER 2021-07-07 05:59 | Day surgery (SDC) | payer MEDICAID ==
[2021-07-07] MEDS ORDERED: Midazolam 1 MG/ML 2 ML SDV IV ONE ×6 (06:00→07:55)
[2021-07-07] MEDS ORDERED: fentaNYL 100 MCG/2 ML SDV IV ONE ×3 (06:00→07:48)
[2021-07-07] MEDS ORDERED: fentaNYL 100 MCG/2 ML SDV ONE (06:14)
[2021-07-07] MEDS ORDERED: Midazolam 1 MG/ML 2 ML SDV ONE (06:14)
[2021-07-07] MEDS ORDERED: Dextrose 5%-0.45% NaCl 1,000 ML IV SCH (06:30)
[2021-07-07 11:30] VITALS: BP 118/49; PULSE 71
== END 2021-07-07 09:50 | disposition home or self-care (01) ==
LOC: DL.ENDO 05:59
PROVIDERS: ATTEND Internal Medicine Gastroenterology
DX: K62.5 Hemorrhage of anus and rectum (principal); D64.9 Anemia, unspecified; E66.09 Other obesity due to excess calories; Z80.0 Family history of malignant neoplasm of digestive organs
CPT/HCPCS: 45378; J2250; J3010; J7042

== ENCOUNTER 2021-07-18 11:20 | Emergency (ER) | payer MEDICAID ==
[2021-07-18 11:26] VITALS: BP 119/62; PULSE 95
[2021-07-18] MEDS ORDERED: Iopamidol 612 MG/ML 100 ML Bottle IVPUSH ONE (11:41)
[2021-07-18] MEDS ORDERED: HYDROmorphone 0.5 MG/0.5 ML Syringe IVPUSH ONE (13:05)
[2021-07-18] MEDS ORDERED: Ibuprofen 600 MG Tab PO ONE (14:56)
== END 2021-07-18 16:46 | disposition home or self-care (01) ==
LOC: DL.ED 11:20
DX: L03.311 Cellulitis of abdominal wall (principal); E78.00 Pure hypercholesterolemia, unspecified; I10 Essential (primary) hypertension; E66.9 Obesity, unspecified; Z68.42 Body mass index [BMI] 45.0-49.9, adult; Z91.011 Allergy to milk products; Z79.899 Other long term (current) drug therapy
CPT/HCPCS: 36415; 74177; 81001; 83605; 87040; 96365; 96366; 96375; 99284; A9270; J1170; J3370; J7040; Q9967

== ENCOUNTER 2021-07-20 09:47 | Emergency (ER) | payer MEDICAID ==
[2021-07-20 10:26] VITALS: BP 129/54; PULSE 90
[2021-07-20] MEDS ORDERED: Ondansetron 4 MG/2 ML SDV IVPUSH ONE (11:00)
[2021-07-20] MEDS ORDERED: HYDROmorphone 1 MG/ML Syringe IVPUSH ONE (11:00)
[2021-07-20 11:04] LABS: CHLORIDE,CL 99 mmol/L (98-107); SODIUM,NA 135 mmol/L (136-145)
[2021-07-20] MEDS: Sodium Chloride 0.9% 1,000 ML IV ONE (12:13)
[2021-07-20] MEDS ORDERED: Iopamidol 612 MG/ML 100 ML Bottle IVPUSH ONE (12:19)
[2021-07-22] MEDS: Sodium Chloride 0.9% 1,000 ML IV ONE (02:57)
== END 2021-07-20 14:50 ==
LOC: DL.ED 09:47
DX: T81.42XA Infection following a procedure, deep incisional surgical site, initial encounter (principal); E78.00 Pure hypercholesterolemia, unspecified; I10 Essential (primary) hypertension; E11.9 Type 2 diabetes mellitus without complications; E66.9 Obesity, unspecified; Z68.41 Body mass index [BMI] 40.0-44.9, adult; Z91.018 Allergy to other foods; Z79.899 Other long term (current) drug therapy
CPT/HCPCS: 36410; 36415; 74177; 80053; 81001; 83605; 85025; 86140; 87040; 87070; 96374; 96375; 99284; 99285-25; J1170; J2405; J7030; Q9967

== ENCOUNTER 2021-08-07 19:24 | Emergency (ER) | payer MEDICAID ==
[2021-08-07] MEDS ORDERED: Acetaminophen/oxyCODONE 325-5 MG Tab PO ONE ×2 (19:25→21:38)
[2021-08-07 20:34] LABS: ANION GAP 13.8 mEq/L (7-13); CHLORIDE,CL 103 mmol/L (98-107); SODIUM,NA 140 mmol/L (136-145)
[2021-08-07 21:33] VITALS: BP 132/69; PULSE 68
[2021-08-07] MEDS ORDERED: Acetaminophen/oxyCODONE 325-5 MG Tab ONE (21:40)
== END 2021-08-07 21:55 | disposition home or self-care (01) ==
LOC: DL.ED 19:24
DX: T81.49XA Infection following a procedure, other surgical site, initial encounter (principal); E78.00 Pure hypercholesterolemia, unspecified; I10 Essential (primary) hypertension; E11.9 Type 2 diabetes mellitus without complications; E66.9 Obesity, unspecified; Z68.42 Body mass index [BMI] 45.0-49.9, adult; Z90.710 Acquired absence of both cervix and uterus; Z79.899 Other long term (current) drug therapy; Z91.011 Allergy to milk products
CPT/HCPCS: 36415; 80053; 83605; 85025; 87040; 99283; 99284; A9270-GY

== ENCOUNTER 2021-08-11 15:50 | Emergency (ER) | payer MEDICAID ==
[2021-08-11] MEDS ORDERED: Sodium Chloride 0.9% 10 ML Syringe FLUSH PRN (16:09)
[2021-08-11 16:29] VITALS: BP 135/68; PULSE 88
[2021-08-11 16:57] LABS: ANION GAP 14.1 mEq/L (7-13); CHLORIDE,CL 102 mmol/L (98-107); SODIUM,NA 140 mmol/L (136-145)
[2021-08-11 17:11] LABS: AMPHETAMINES,URINE NEGATIVE (NEGATIVE); BARBITURATES,URINE NEGATIVE (NEGATIVE); BENZODIAZEPINE,URINE NEGATIVE (NEGATIVE); MDMA (ECSTASY), URINE NEGATIVE (NEGATIVE); METHADONE,URINE NEGATIVE (NEGATIVE); METHAMPHETAMINES,URINE NEGATIVE (NEGATIVE); OPIATES,URINE NEGATIVE (NEGATIVE); OXYCODONE,URINE NEGATIVE (NEGATIVE); PHENCYCLIDINE,URINE NEGATIVE (NEGATIVE); TCA,URINE NEGATIVE (NEGATIVE)
[2021-08-11] MEDS ORDERED: Iopamidol 612 MG/ML 100 ML Bottle IVPUSH ONE (17:20)
[2021-08-11] MEDS ORDERED: Sodium Chloride 0.9% 1,000 ML IV ONE (18:33)
[2021-08-11] MEDS ORDERED: Piperacillin/Tazobactam 3.375 GM in Sodium Chloride 0.9% 100 ML IV ONE (19:12)
[2021-08-11] MEDS ORDERED: Acetaminophen 500 MG Tab PO ONE (20:23)
== END 2021-08-11 22:28 ==
LOC: DL.ED 15:50
DX: L02.211 Cutaneous abscess of abdominal wall (principal); E78.00 Pure hypercholesterolemia, unspecified; I10 Essential (primary) hypertension; E11.9 Type 2 diabetes mellitus without complications; E66.9 Obesity, unspecified; Z68.41 Body mass index [BMI] 40.0-44.9, adult; Z90.710 Acquired absence of both cervix and uterus; Z79.899 Other long term (current) drug therapy; Z91.011 Allergy to milk products
CPT/HCPCS: 36415; 74177; 80053; 80305; 81001; 83605; 85025; 86140; 87086; 96365; 96367; 99285; A9270; J2543; J3370; J3490; J7030; J7040; Q9967

== ENCOUNTER 2021-08-29 05:44 | Emergency (ER) | payer MEDICAID ==
[2021-08-29 06:05] VITALS: BP 125/71; PULSE 118
== END 2021-08-29 07:55 | disposition home or self-care (01) ==
LOC: DL.ED 05:44
DX: Z48.00 Encounter for change or removal of nonsurgical wound dressing (principal); E78.00 Pure hypercholesterolemia, unspecified; I10 Essential (primary) hypertension; E11.9 Type 2 diabetes mellitus without complications; E66.9 Obesity, unspecified; Z68.43 Body mass index [BMI] 50.0-59.9, adult; Z91.011 Allergy to milk products
CPT/HCPCS: 99282; 99283

== ENCOUNTER 2021-09-11 16:17 | Emergency (ER) | payer MEDICAID ==
[2021-09-11] MEDS ORDERED: Sodium Chloride 0.9% 1,000 ML IV ONE (17:22)
[2021-09-11 18:06] LABS: ANION GAP 14.5 mEq/L (7-13)
[2021-09-11] MEDS ORDERED: Sodium Chloride 0.9% 1,000 ML IV SCH (19:15)
[2021-09-11] MEDS ORDERED: Iopamidol 612 MG/ML 100 ML Bottle IVPUSH ONE (19:34)
[2021-09-11] MEDS ORDERED: Piperacillin/Tazobactam 3.375 GM in Sodium Chloride 0.9% 100 ML IV ONE (21:55)
[2021-09-11 23:45] VITALS: BP 104/53; PULSE 89
== END 2021-09-12 00:27 ==
LOC: DL.ED 16:17
DX: T81.40XA Infection following a procedure, unspecified, initial encounter (principal); E78.00 Pure hypercholesterolemia, unspecified; I10 Essential (primary) hypertension; E11.9 Type 2 diabetes mellitus without complications; E66.9 Obesity, unspecified; Z68.41 Body mass index [BMI] 40.0-44.9, adult; Z91.011 Allergy to milk products; Z20.822 Contact with and (suspected) exposure to COVID-19
CPT/HCPCS: 36415; 74177; 80053; 83605; 85025; 85651; 86140; 87040; 87635; 96361; 96365; 96366; 99285; J2543; J7030; Q9967; U0002

== ENCOUNTER 2021-12-04 17:09 | Emergency (ER) | payer MEDICAID | END 2021-12-04 17:23 | disposition left against medical advice (07) | LOC: DL.ED 17:09 | DX: Z53.21 Procedure and treatment not carried out due to patient leaving prior to being seen by health care provider (principal) ==

== ENCOUNTER 2023-02-01 12:54 | Emergency (ER) | payer MEDICAID ==
[2023-02-01 13:17] VITALS: BP 171/80; PULSE 95
[2023-02-01 13:25] LABS: BASOPHILS PERCENT AUTO 0.7 % (0.0-1.0); EOSINOPHILS PERCENT AUTO 0.8 % (1.0-3.0); HEMATOCRIT 34.8 % (37.0-47.0); HEMOGLOBIN 11.4 g/dL (12.0-16.0); LYMPHOCYTES PERCENT AUTO 20.7 % (20.5-50.1); MEAN CORPUSCULAR HEMOGLOBIN 30.2 pg (27.0-34.0); MEAN CORPUSCULAR HGB CONC 32.8 g/dL (33.0-35.0); MEAN CORPUSCULAR VOLUME 92.3 fL (80-100); MONOCYTES PERCENT AUTO 7.1 % (2-8); NEUTROPHILS PERCENT AUTO 70.7 % (42.2-75.2); PLATELET COUNT,PLT 209 10^3/uL (150-450); RED BLOOD CELL COUNT 3.77 10^6/uL (4.2-5.4); WHITE BLOOD CELL COUNT,WBC 7.2 10^3/uL (5.0-10.0)
[2023-02-01 13:46] LABS: A/G RATIO 0.7; ALBUMIN 3.7 g/dL (3.4-5.0); ANION GAP 13.6 mEq/L (7-13); BILIRUBIN TOTAL 0.5 mg/dL (0.2-1.0); BUN/CREATININE RATIO 4.2 (No establ ref range); CALCIUM 8.2 mg/dL (8.5-10.1); CREATININE 0.71 mg/dL (0.55-1.02); EST CRCL DRUG DOSING (CG) 96.67 mL/min; POTASSIUM,K 3.6 mmol/L (3.5-5.1); PROTEIN TOTAL,TP 8.7 g/dL (6.4-8.2)
== END 2023-02-01 13:57 | disposition home or self-care (01) ==
LOC: DL.ED 12:54
DX: S00.531A Contusion of lip, initial encounter (principal); S00.81XA Abrasion of other part of head, initial encounter; L03.311 Cellulitis of abdominal wall; F10.920 Alcohol use, unspecified with intoxication, uncomplicated; I10 Essential (primary) hypertension; E78.00 Pure hypercholesterolemia, unspecified; E11.9 Type 2 diabetes mellitus without complications; E66.9 Obesity, unspecified; Z68.41 Body mass index [BMI] 40.0-44.9, adult; Z90.710 Acquired absence of both cervix and uterus; Z79.899 Other long term (current) drug therapy; Z91.011 Allergy to milk products; Y04.2XXA Assault by strike against or bumped into by another person, initial encounter
CPT/HCPCS: 36415; 80053; 80307; 85025; 99284

== ENCOUNTER 2023-02-10 10:12 | Emergency (ER) | payer MEDICAID ==
[~2023-02-10 10:12] MED LIST changes: +Cephalexin 500 MG Cap PO ONE; -LORazepam 2 MG/ML SDV IVPUSH ONE; +Sulfamethoxazole/Trimethoprim 800-160 MG Tab PO ONE; +Take Home: Cephalexin 500 MG Cap, 6 Cap Pack PO ONE; +Take Home: Sulfamethoxazole/Trimethoprim 800-160 MG Tab, 6 Tab Pack PO ONE
[2023-02-10 10:14] VITALS: BP 142/71; PULSE 80
== END 2023-02-10 10:44 | disposition home or self-care (01) ==
LOC: DL.ED 10:12
DX: L03.311 Cellulitis of abdominal wall (principal); I10 Essential (primary) hypertension; E78.00 Pure hypercholesterolemia, unspecified; E11.9 Type 2 diabetes mellitus without complications; E66.9 Obesity, unspecified; Z79.899 Other long term (current) drug therapy; Z91.011 Allergy to milk products; Z90.710 Acquired absence of both cervix and uterus; Z68.42 Body mass index [BMI] 45.0-49.9, adult
CPT/HCPCS: 99283; A9270

== ENCOUNTER 2023-04-22 20:32 | Emergency (ER) | payer MEDICAID ==
[2023-04-22] MEDS ORDERED: Sodium Chloride 0.9% 10 ML Syringe FLUSH PRN (20:37)
[2023-04-22] MEDS ORDERED: MVI, Adult with Vitamin K 10 ML, Folic Acid 1 MG, Thiamine 100 MG in Lactated Ringers 1... IV ONE ×4 (20:39)
[2023-04-22] MEDS ORDERED: Ondansetron 4 MG/2 ML SDV IVPUSH ONE (20:58)
[2023-04-22 21:02] LABS: BASOPHILS PERCENT AUTO 0.9 % (0.0-1.0); EOSINOPHILS PERCENT AUTO 1.1 % (1.0-3.0); HEMATOCRIT 33.8 % (37.0-47.0); HEMOGLOBIN 11.1 g/dL (12.0-16.0); LYMPHOCYTES PERCENT AUTO 37.3 % (20.5-50.1); MEAN CORPUSCULAR HEMOGLOBIN 28.6 pg (27.0-34.0); MEAN CORPUSCULAR HGB CONC 32.8 g/dL (33.0-35.0); MEAN CORPUSCULAR VOLUME 87.1 fL (80-100); NEUTROPHILS PERCENT AUTO 56.7 % (42.2-75.2); PLATELET COUNT,PLT 199 10^3/uL (150-450); RED BLOOD CELL COUNT 3.88 10^6/uL (4.2-5.4); WHITE BLOOD CELL COUNT,WBC 5.4 10^3/uL (5.0-10.0)
[2023-04-22 21:38] LABS: LACTIC ACID 4.8 mmol/L (0.4-2.0)
[2023-04-22 21:39] LABS: APPEARANCE,URINE SLIGHTLY CLOUDY (CLEAR); BILIRUBIN,URINE NEGATIVE (NEGATIVE); COLOR,URINE YELLOW (YELLOW); GLUCOSE,URINE NEGATIVE (NEGATIVE); KETONES,URINE 15 (NEGATIVE); LEUKOCYTE ESTERASE,URINE TRACE (NEGATIVE); NITRITE,URINE NEGATIVE (NEGATIVE); OCCULT BLOOD,URINE SMALL (NEGATIVE); PROTEIN,URINE 100 (NEGATIVE); UROBILINOGEN,URINE 0.2 mg/dL (0.2-1.0)
[2023-04-22 21:39] LABS: ACETAMINOPHEN 0 ug/mL (10-30 (Therapeutic)); ALANINE AMINOTRANSFERASE,ALT 314 U/L (14-59); ALBUMIN 3.9 g/dL (3.4-5.0); ALKALINE PHOSPHATASE 120 U/L (46-116); ANION GAP 23.9 mEq/L (7-13); ASPARTATE AMNIOTRANSFERASE,AST 399 U/L (15-37); BILIRUBIN TOTAL 1.1 mg/dL (0.2-1.0); BLOOD UREA NITROGEN,BUN 7 mg/dL (7-18); BUN/CREATININE RATIO 8.6 (No establ ref range); CALCIUM 8.7 mg/dL (8.5-10.1); CARBON DIOXIDE,CO2 22 mmol/L (21-32); CHLORIDE,CL 101 mmol/L (98-107); CREATININE 0.81 mg/dL (0.55-1.02); ESTIMATED GFR 95 mL/min (>=60); GLUCOSE RANDOM 96 mg/dL (70-99); MAGNESIUM 1.1 mg/dL (1.8-2.4); POTASSIUM,K 3.9 mmol/L (3.5-5.1); SODIUM,NA 143 mmol/L (136-145)
[2023-04-22 21:40] LABS: ETHANOL BLOOD MEDICAL 437 mg/dL (0)
[2023-04-22] MEDS ORDERED: Magnesium Sulfate/Water 4 GM in Premix Bag 1 BAG IV ONE (21:42)
[2023-04-22] MEDS ORDERED: Sodium Chloride 0.9% 1,000 ML IV ONE (21:43)
[2023-04-22 21:44] LABS: AMPHETAMINES,URINE NEGATIVE (NEGATIVE); BARBITURATES,URINE NEGATIVE (NEGATIVE); BENZODIAZEPINE,URINE NEGATIVE (NEGATIVE); MDMA (ECSTASY), URINE NEGATIVE (NEGATIVE); METHADONE,URINE NEGATIVE (NEGATIVE); METHAMPHETAMINES,URINE NEGATIVE (NEGATIVE); OPIATES,URINE NEGATIVE (NEGATIVE); OXYCODONE,URINE NEGATIVE (NEGATIVE); PHENCYCLIDINE,URINE NEGATIVE (NEGATIVE); TCA,URINE NEGATIVE (NEGATIVE)
[2023-04-22 21:46] VITALS: BP 159/94; PULSE 108
[2023-04-22 21:48] LABS: AMORPHOUS SEDIMENT,URINE MODERATE /HPF (NOT SEEN); BACTERIA,URINE MODERATE /HPF (0-FEW/HPF); EPITHELIAL CELLS,URINE MANY /HPF (NOT SEEN); MUCUS,URINE FEW /LPF (NOT SEEN); RBC,URINE 0-5 /HPF (0-5)
[2023-04-22] MEDS ORDERED: Promethazine 25 MG/ML SDV IM ONE (21:52)
[2023-04-22] MEDS ORDERED: cefTRIAXone 1 GM Vial IVPUSH ONE (22:13)
[2023-04-22] MEDS ORDERED: Metoclopramide 10 MG/2 ML SDV IVPUSH ONE (23:05)
[2023-04-22] MEDS ORDERED: Pantoprazole 40 MG Vial IVPUSH ONE (23:05)
[2023-04-23] MEDS ORDERED: Sodium Chloride 0.9% 1,000 ML IV ONE (01:12)
[2023-04-23 01:30] LABS: MAGNESIUM 1.6 mg/dL (1.8-2.4)
== END 2023-04-23 04:47 | disposition home or self-care (01) ==
LOC: DL.ED 20:32
DX: F10.920 Alcohol use, unspecified with intoxication, uncomplicated (principal); N39.0 Urinary tract infection, site not specified; E83.42 Hypomagnesemia; R74.02 Elevation of levels of lactic acid dehydrogenase [LDH]; R74.01 Elevation of levels of liver transaminase levels; F12.90 Cannabis use, unspecified, uncomplicated; E11.9 Type 2 diabetes mellitus without complications; I10 Essential (primary) hypertension; E66.9 Obesity, unspecified; E78.00 Pure hypercholesterolemia, unspecified; Z68.42 Body mass index [BMI] 45.0-49.9, adult; Z79.899 Other long term (current) drug therapy; Z91.011 Allergy to milk products; W19.XXXA Unspecified fall, initial encounter
CPT/HCPCS: 36415; 70450; 72125; 80053; 80143; 80179; 80305-QW; 80307; 81001; 83605; 83735; 85025; 87086; 87088; 87186; 96365; 96366; 96367; 96372; 96375; 99284; 99284-25; C9113; J0696; J2405; J2550; J2765; J3411; J3475; J3490; J7030; J7120

== ENCOUNTER 2023-06-11 00:41 | Emergency (ER) | payer MEDICAID ==
[2023-06-11 00:51] VITALS: BP 119/50; PULSE 125
[2023-06-11] MEDS: Sodium Chloride 0.9% 1,000 ML IV ONE (01:04)
[2023-06-11] MEDS: Sodium Chloride 0.9% 10 ML Syringe FLUSH PRN (01:04)
[2023-06-11 01:08] LABS: BASOPHILS PERCENT AUTO 0.7 % (0.0-1.0); EOSINOPHILS PERCENT AUTO 0.5 % (1.0-3.0); HEMATOCRIT 34.6 % (37.0-47.0); HEMOGLOBIN 11.6 g/dL (12.0-16.0); LYMPHOCYTES PERCENT AUTO 24.7 % (20.5-50.1); MEAN CORPUSCULAR HEMOGLOBIN 28.8 pg (27.0-34.0); MEAN CORPUSCULAR HGB CONC 33.5 g/dL (33.0-35.0); MEAN CORPUSCULAR VOLUME 85.9 fL (80-100); MONOCYTES PERCENT AUTO 9.4 % (2-8); NEUTROPHILS PERCENT AUTO 64.7 % (42.2-75.2); PLATELET COUNT,PLT 146 10^3/uL (150-450); RED BLOOD CELL COUNT 4.03 10^6/uL (4.2-5.4); WHITE BLOOD CELL COUNT,WBC 12.8 10^3/uL (5.0-10.0)
[2023-06-11 01:29] LABS: ALBUMIN 4.1 g/dL (3.4-5.0); ANION GAP 20.9 mEq/L (7-13); BILIRUBIN TOTAL 2.2 mg/dL (0.2-1.0); BUN/CREATININE RATIO 7.5 (No establ ref range); CALCIUM 8.3 mg/dL (8.5-10.1); CREATININE 2.53 mg/dL (0.55-1.02); EST CRCL DRUG DOSING (CG) 26.86 mL/min; POTASSIUM,K 2.9 mmol/L (3.5-5.1); PROTEIN TOTAL,TP 8.2 g/dL (6.4-8.2)
[2023-06-11] MEDS ORDERED: Magnesium Sulfate/Water 2 GM in Premix Bag 2 BAG IV ONE (01:47)
[2023-06-11] MEDS ORDERED: Iopamidol 612 MG/ML 100 ML Bottle IVPUSH ONE (01:56)
[2023-06-11] MEDS ORDERED: Magnesium Sulfate/Water 2 GM in Premix Bag 1 BAG IV SCH (02:00)
[2023-06-11] MEDS: Lactated Ringers 1,000 ML IV ONE (02:00)
[2023-06-11] MEDS: Potassium Chloride 20 MEQ in Premix Bag 1 BAG IV ONE (02:01)
[2023-06-11] MEDS: Potassium Chloride 10 MEQ Tab.ER PO ONE (02:01)
[2023-06-11] MEDS: Cefepime 2 GM Vial IVPUSH ONE (02:14)
[2023-06-11] MEDS: Magnesium Sulfate/Water 2 GM in Premix Bag 1 BAG IV SCH (02:25)
[2023-06-11] MEDS: Aspirin 81 MG Tab.Chew PO ONE (02:27)
== END 2023-06-11 03:58 | disposition left against medical advice (07) ==
LOC: DL.ED 00:41
DX: R10.84 Generalized abdominal pain (principal); I21.4 Non-ST elevation (NSTEMI) myocardial infarction; R00.0 Tachycardia, unspecified; N17.9 Acute kidney failure, unspecified; I45.81 Long QT syndrome; E87.6 Hypokalemia; E87.20 Acidosis, unspecified; E83.42 Hypomagnesemia; E66.01 Morbid (severe) obesity due to excess calories; I50.9 Heart failure, unspecified; Z91.011 Allergy to milk products; Z79.899 Other long term (current) drug therapy; Z90.710 Acquired absence of both cervix and uterus; Z68.45 Body mass index [BMI] 70 or greater, adult
CPT/HCPCS: 36415; 71045; 74176; 80053; 80307; 83605; 83690; 83735; 84484; 85025; 93005; 93010; 96361; 96365; 96366; 96375; 99285-25; 99291; A9270-GY; J0692; J3475; J3480; J3490; J7030; J7120

== ENCOUNTER 2023-07-24 21:30 | Inpatient (IN) | payer MEDICAID ==
[2023-07-24] MEDS: Sodium Chloride 0.9% 10 ML Syringe FLUSH PRN (21:59)
[2023-07-24 22:03] LABS: BASOPHILS PERCENT AUTO 0.5 % (0.0-1.0); EOSINOPHILS PERCENT AUTO 0.7 % (1.0-3.0); HEMATOCRIT 37.2 % (37.0-47.0); HEMOGLOBIN 12.2 g/dL (12.0-16.0); LYMPHOCYTES PERCENT AUTO 47.2 % (20.5-50.1); MEAN CORPUSCULAR HGB CONC 32.8 g/dL (33.0-35.0); MEAN CORPUSCULAR VOLUME 88.6 fL (80-100); MONOCYTES PERCENT AUTO 4.3 % (2-8); NEUTROPHILS PERCENT AUTO 47.3 % (42.2-75.2); PLATELET COUNT,PLT 174 10^3/uL (150-450); WHITE BLOOD CELL COUNT,WBC 5.8 10^3/uL (5.0-10.0)
[2023-07-24] MEDS: Ondansetron 4 MG/2 ML SDV IVPUSH ONE (22:19)
[2023-07-24] MEDS: MVI, Adult with Vitamin K 10 ML, Folic Acid 1 MG, Thiamine 100 MG in Lactated Ringers 1... IV ONE (22:24)
[2023-07-24 22:28] LABS: INR 1.3 (0.9-1.2); PROTHROMBIN TIME 12.9 SEC (9.0-12.0); PTT,PARTIAL THROMBOPLSTIN TIME 24.1 SEC (22.0-34.0)
[2023-07-24 22:32] LABS: A/G RATIO 0.9; ALANINE AMINOTRANSFERASE,ALT 190 U/L (14-59); ALBUMIN 4.1 g/dL (3.4-5.0); ALKALINE PHOSPHATASE 109 U/L (46-116); AMYLASE 16 U/L (25-115); ANION GAP 19.4 mEq/L (7-13); ASPARTATE AMNIOTRANSFERASE,AST 295 U/L (15-37); BILIRUBIN TOTAL 0.8 mg/dL (0.2-1.0); BLOOD UREA NITROGEN,BUN 6 mg/dL (7-18); BUN/CREATININE RATIO 6.5 (No establ ref range); CALCIUM 8.2 mg/dL (8.5-10.1); CARBON DIOXIDE,CO2 27 mmol/L (21-32); CHLORIDE,CL 102 mmol/L (98-107); CREATINE KINASE,CK 900 U/L (16-191); CREATININE 0.93 mg/dL (0.55-1.02); EST CRCL DRUG DOSING (CG) 70.13 mL/min; GLUCOSE RANDOM 118 mg/dL (70-99); LACTIC ACID 4.3 mmol/L (0.4-2.0); LIPASE 32 U/L (16-77); MAGNESIUM 1.2 mg/dL (1.8-2.4); POTASSIUM,K 3.4 mmol/L (3.5-5.1); PROTEIN TOTAL,TP 8.6 g/dL (6.4-8.2); SODIUM,NA 145 mmol/L (136-145)
[2023-07-24 22:33] LABS: ACETAMINOPHEN 0 ug/mL (10-30 (Therapeutic)); C-REACTIVE PROTEIN < 0.50 ng/dL (<=0.50); ESTIMATED GFR 80 mL/min (>=60)
[2023-07-24 22:34] LABS: ETHANOL BLOOD MEDICAL 428 mg/dL (0)
[2023-07-24] MEDS: Magnesium Sulfate/Water 2 GM in Premix Bag 1 BAG IV ONE (22:48)
[2023-07-24] MEDS: Sodium Chloride 0.9% 1,000 ML IV ONE (23:42)
[2023-07-25] MEDS ORDERED: Acetaminophen 325 MG Tab PO PRN (00:56)
[2023-07-25] MEDS ORDERED: Ondansetron 4 MG/2 ML SDV IVPUSH PRN (00:56)
[2023-07-25] MEDS ORDERED: Docusate Sodium 100 MG Cap PO PRN (00:56)
[2023-07-25] MEDS ORDERED: Bisacodyl 5 MG Tab PO PRN (00:56)
[2023-07-25 01:30] LABS: APPEARANCE,URINE CLEAR (CLEAR); BILIRUBIN,URINE NEGATIVE (NEGATIVE); COLOR,URINE YELLOW (YELLOW); GLUCOSE,URINE NEGATIVE (NEGATIVE); KETONES,URINE TRACE (NEGATIVE); LEUKOCYTE ESTERASE,URINE NEGATIVE (NEGATIVE); NITRITE,URINE NEGATIVE (NEGATIVE); OCCULT BLOOD,URINE TRACE-LYSED (NEGATIVE); PH,URINE 6.5 (5.0-9.0); PROTEIN,URINE 100 (NEGATIVE)
[2023-07-25] MEDS: Sodium Chloride 0.9% 1,000 ML IV SCH (01:38)
[2023-07-25 01:49] LABS: AMPHETAMINES,URINE NEGATIVE (NEGATIVE); BARBITURATES,URINE NEGATIVE (NEGATIVE); BENZODIAZEPINE,URINE NEGATIVE (NEGATIVE); MDMA (ECSTASY), URINE NEGATIVE (NEGATIVE); METHADONE,URINE NEGATIVE (NEGATIVE); METHAMPHETAMINES,URINE NEGATIVE (NEGATIVE); OPIATES,URINE NEGATIVE (NEGATIVE); OXYCODONE,URINE NEGATIVE (NEGATIVE); PHENCYCLIDINE,URINE NEGATIVE (NEGATIVE); TCA,URINE NEGATIVE (NEGATIVE)
[2023-07-25] MEDS: Thiamine 100 MG in Sodium Chloride 0.9% 50 ML IV ONE (01:52)
[2023-07-25 02:06] LABS: BACTERIA,URINE FEW /HPF (0-FEW/HPF); EPITHELIAL CELLS,URINE FEW /HPF (NOT SEEN); MUCUS,URINE OCCASIONAL /LPF (NOT SEEN); RBC,URINE 0-5 /HPF (0-5); WBC,URINE 0-5 /HPF (0-5/HPF)
[2023-07-25] MEDS: Pantoprazole 40 MG Tab.CR PO SCH (05:05)
[2023-07-25 06:57] LABS: A/G RATIO 0.87; ALBUMIN 3.3 g/dL (3.4-5.0); ANION GAP 17.2 mEq/L (7-13); BILIRUBIN TOTAL 0.8 mg/dL (0.2-1.0); BUN/CREATININE RATIO 6.8 (No establ ref range); CALCIUM 7.2 mg/dL (8.5-10.1); CREATININE 0.74 mg/dL (0.55-1.02); EST CRCL DRUG DOSING (CG) 88.14 mL/min; MAGNESIUM 1.5 mg/dL (1.8-2.4); POTASSIUM,K 3.2 mmol/L (3.5-5.1); PROTEIN TOTAL,TP 7.1 g/dL (6.4-8.2)
[2023-07-25] MEDS: LORazepam 0.5 MG Tab PO PRN (07:14)
[2023-07-25 07:36] VITALS: BP 163/96; PULSE 99
[2023-07-25] MEDS: Potassium Chloride 10 MEQ Tab.ER PO ONE (08:22)
[2023-07-25] MEDS: Magnesium Sulfate/Water 2 GM in Premix Bag 1 BAG IV ONE (08:23)
[2023-07-25] MEDS: Enoxaparin 40 MG/0.4 ML Syringe SUBCUT SCH (08:23)
[2023-07-25] MEDS: Folic Acid 1 MG Tab PO SCH (08:23)
[2023-07-25 11:19] LABS: ANION GAP 17.9 mEq/L (7-13); CALCIUM 7.6 mg/dL (8.5-10.1); CREATININE 0.74 mg/dL (0.55-1.02); EST CRCL DRUG DOSING (CG) 88.14 mL/min; POTASSIUM,K 3.9 mmol/L (3.5-5.1)
[2023-07-26] MEDS ORDERED: Thiamine 100 MG Tab PO SCH (09:00)
== END 2023-07-25 10:55 | disposition left against medical advice (07) | DRG 894 ==
LOC: DL.ED 21:30 → DL.MS 23:45
PROVIDERS: ADMIT Internal Medicine; ATTEND Internal Medicine
DX: F10.129 Alcohol abuse with intoxication, unspecified (principal); Z68.42 Body mass index [BMI] 45.0-49.9, adult; H54.7 Unspecified visual loss; I10 Essential (primary) hypertension; E66.01 Morbid (severe) obesity due to excess calories; T42.6X1A Poisoning by other antiepileptic and sedative-hypnotic drugs, accidental (unintentional), initial encounter; B19.20 Unspecified viral hepatitis C without hepatic coma; Z91.018 Allergy to other foods; Z79.899 Other long term (current) drug therapy; Z90.710 Acquired absence of both cervix and uterus
CPT/HCPCS: 36415; 80048; 80053; 80143; 80179; 80305-QW; 80307; 81001; 82150; 82550; 83605; 83690; 83735; 84484; 85025; 85610; 85730; 86140; 93005; A9270-GY; J1650; J2405; J3411; J3475; J3490; J7030; J7120

== ENCOUNTER 2023-10-18 10:31 | Inpatient (IN) | payer OTHER ==
[2023-10-18] MEDS ORDERED: Sodium Chloride 0.9% 10 ML Syringe FLUSH PRN (10:48)
[2023-10-18] MEDS: MVI, Adult with Vitamin K 10 ML, Folic Acid 1 MG, Thiamine 100 MG in Lactated Ringers 1... IV ONE (11:00)
[2023-10-18] MEDS: LORazepam 2 MG/ML SDV IVPUSH ONE (11:02)
[2023-10-18] MEDS: Ondansetron 4 MG/2 ML SDV IVPUSH ONE (11:02)
[2023-10-18 11:29] LABS: BASOPHILS PERCENT AUTO 0.4 % (0.0-1.0); HEMOGLOBIN 12.4 g/dL (12.0-16.0); LYMPHOCYTES PERCENT AUTO 4.7 % (20.5-50.1); MEAN CORPUSCULAR HEMOGLOBIN 31.2 pg (27.0-34.0); MEAN CORPUSCULAR HGB CONC 32.6 g/dL (33.0-35.0); MEAN CORPUSCULAR VOLUME 95.7 fL (80-100); MONOCYTES PERCENT AUTO 4.1 % (2-8); NEUTROPHILS PERCENT AUTO 90.8 % (42.2-75.2); PLATELET COUNT,PLT 105 10^3/uL (150-450); RED BLOOD CELL COUNT 3.97 10^6/uL (4.2-5.4); WHITE BLOOD CELL COUNT,WBC 5.4 10^3/uL (5.0-10.0)
[2023-10-18 11:48] LABS: A/G RATIO 0.8; ALANINE AMINOTRANSFERASE,ALT 111 U/L (14-59); ALBUMIN 3.7 g/dL (3.4-5.0); ALKALINE PHOSPHATASE 114 U/L (46-116); AMYLASE 22 U/L (25-115); ANION GAP 20.2 mEq/L (7-13); ASPARTATE AMNIOTRANSFERASE,AST 256 U/L (15-37); BILIRUBIN TOTAL 2.7 mg/dL (0.2-1.0); BLOOD UREA NITROGEN,BUN 9 mg/dL (7-18); BUN/CREATININE RATIO 11.7 (No establ ref range); CALCIUM 8.7 mg/dL (8.5-10.1); CARBON DIOXIDE,CO2 28 mmol/L (21-32); CHLORIDE,CL 98 mmol/L (98-107); CREATININE 0.77 mg/dL (0.55-1.02); EST CRCL DRUG DOSING (CG) 88.26 mL/min; ESTIMATED GFR 101 mL/min (>=60); GLUCOSE RANDOM 109 mg/dL (70-99); LIPASE 32 U/L (16-77); POTASSIUM,K 4.2 mmol/L (3.5-5.1); PROTEIN TOTAL,TP 8.1 g/dL (6.4-8.2); SODIUM,NA 142 mmol/L (136-145)
[2023-10-18 11:49] LABS: C-REACTIVE PROTEIN < 0.50 ng/dL (<=0.50); ETHANOL BLOOD MEDICAL < 3 mg/dL (0)
[2023-10-18 11:50] LABS: MAGNESIUM 0.6 mg/dL (1.8-2.4)
[2023-10-18 11:53] LABS: LACTIC ACID 2.9 mmol/L (0.4-2.0)
[2023-10-18] MEDS: Magnesium Sulfate/Water 2 GM in Premix Bag 1 BAG IV ONE ×2 (11:58→20:39)
[2023-10-18 12:30] LABS: INR 1.4 (0.9-1.2); PROTHROMBIN TIME 14.1 SEC (9.0-12.0)
[2023-10-18 12:44] LABS: APPEARANCE,URINE SLIGHTLY CLOUDY (CLEAR); BILIRUBIN,URINE SMALL (NEGATIVE); COLOR,URINE DARK YELLOW (YELLOW); GLUCOSE,URINE NEGATIVE (NEGATIVE); KETONES,URINE 80 (NEGATIVE); LEUKOCYTE ESTERASE,URINE NEGATIVE (NEGATIVE); NITRITE,URINE NEGATIVE (NEGATIVE); OCCULT BLOOD,URINE SMALL (NEGATIVE); PH,URINE 6.5 (5.0-9.0); PROTEIN,URINE 100 (NEGATIVE)
[2023-10-18 12:46] LABS: AMPHETAMINES,URINE NEGATIVE (NEGATIVE); BARBITURATES,URINE NEGATIVE (NEGATIVE); BENZODIAZEPINE,URINE NEGATIVE (NEGATIVE); MDMA (ECSTASY), URINE NEGATIVE (NEGATIVE); METHADONE,URINE NEGATIVE (NEGATIVE); METHAMPHETAMINES,URINE NEGATIVE (NEGATIVE); OPIATES,URINE NEGATIVE (NEGATIVE); OXYCODONE,URINE NEGATIVE (NEGATIVE); PHENCYCLIDINE,URINE NEGATIVE (NEGATIVE); TCA,URINE NEGATIVE (NEGATIVE)
[2023-10-18 12:58] LABS: BACTERIA,URINE FEW /HPF (0-FEW/HPF); EPITHELIAL CELLS,URINE FEW /HPF (NOT SEEN); MUCUS,URINE FEW /LPF (NOT SEEN); RBC,URINE 0-5 /HPF (0-5); WBC,URINE 0-5 /HPF (0-5/HPF)
[2023-10-18] MEDS ORDERED: Ibuprofen 400 MG Tab PO PRN (13:09)
[2023-10-18] MEDS: Sodium Chloride 0.9% 1,000 ML IV SCH (13:10)
[2023-10-18] MEDS ORDERED: Magnesium Hydroxide 400 MG/5 ML Susp 30 ML Cup PO PRN (13:11)
[2023-10-18] MEDS ORDERED: Sennosides/Docusate Sodium 50-8.6 MG Tab PO PRN (13:11)
[2023-10-18] MEDS ORDERED: Albuterol/Ipratropium 3.0-0.5 MG/3 ML Neb Soln NEB PRN (13:11)
[2023-10-18] MEDS ORDERED: Polyethylene Glycol 3350 Powder 17 GM Packet PO PRN (13:11)
[2023-10-18] MEDS ORDERED: Promethazine 25 MG/ML SDV IM PRN (13:11)
[2023-10-18] MEDS ORDERED: traMADol 50 MG Tab PO PRN (13:14)
[2023-10-18] MEDS ORDERED: Flumazenil 0.1 MG/ML 5 ML MDV IVPUSH PRN (14:25)
[2023-10-18] MEDS ORDERED: PHENobarbital 64.8 MG Tab PO PRN ×2 (14:26)
[2023-10-18] MEDS ORDERED: LORazepam 2 MG/ML SDV IVPUSH PRN (14:30)
[2023-10-18] MEDS: Scopalamine 1mg/3day Transdermal Patch TOP ONE (14:56)
[2023-10-18] MEDS: Pantoprazole 40 MG Vial IVPUSH ONE (14:56)
[2023-10-18] MEDS: Pantoprazole 40 MG Tab.CR PO SCH (15:59)
[2023-10-18] MEDS ORDERED: hydrALAZINE 20 MG/ML SDV IVPUSH PRN (16:34)
[2023-10-18] MEDS: Ondansetron 4 MG/2 ML SDV IVPUSH PRN (20:38)
[2023-10-18] MEDS: Ketorolac 30 MG/ML SDV IVPUSH PRN (20:38)
[2023-10-18] MEDS: Temazepam 15 MG Cap PO PRN (20:39)
[2023-10-18] MEDS: Gabapentin 300 MG Cap PO SCH (20:40)
[2023-10-18] MEDS ORDERED: Temazepam 15 MG Cap PO PRN (21:07)
[2023-10-18] MEDS: PHENobarbitaL sodium 260 MG in Sodium Chloride 0.9% 100 ML IV ONE (22:09)
[2023-10-18] MEDS: Check Patch TRDERM SCH (22:10)
[2023-10-18] MEDS: Temazepam 15 MG Cap PO ONE (22:13)
[2023-10-19] MEDS: Magnesium Sulfate/Water 2 GM in Premix Bag 1 BAG IV ONE (04:08)
[2023-10-19 06:22] LABS: BASOPHILS PERCENT AUTO 0.6 % (0.0-1.0); EOSINOPHILS PERCENT AUTO 1.9 % (1.0-3.0); HEMATOCRIT 35.6 % (37.0-47.0); HEMOGLOBIN 11.5 g/dL (12.0-16.0); LYMPHOCYTES PERCENT AUTO 38.1 % (20.5-50.1); MEAN CORPUSCULAR HEMOGLOBIN 31.1 pg (27.0-34.0); MEAN CORPUSCULAR HGB CONC 32.3 g/dL (33.0-35.0); MEAN CORPUSCULAR VOLUME 96.2 fL (80-100); MONOCYTES PERCENT AUTO 7.2 % (2-8); NEUTROPHILS PERCENT AUTO 52.2 % (42.2-75.2); PLATELET COUNT,PLT 107 10^3/uL (150-450); WHITE BLOOD CELL COUNT,WBC 4.7 10^3/uL (5.0-10.0)
[2023-10-19 06:47] LABS: ANION GAP 11.5 mEq/L (7-13); BILIRUBIN TOTAL 2.8 mg/dL (0.2-1.0); BUN/CREATININE RATIO 15.8 (No establ ref range); CALCIUM 7.6 mg/dL (8.5-10.1); CREATININE 0.95 mg/dL (0.55-1.02); EST CRCL DRUG DOSING (CG) 71.54 mL/min; MAGNESIUM 2.4 mg/dL (1.8-2.4); POTASSIUM,K 3.5 mmol/L (3.5-5.1); PROTEIN TOTAL,TP 6.9 g/dL (6.4-8.2)
[2023-10-19 06:58] LABS: A/G RATIO 0.77
[2023-10-19] MEDS: Multivitamin Tab PO SCH (08:40)
[2023-10-19] MEDS: Thiamine 100 MG Tab PO SCH (08:40)
[2023-10-19] MEDS: Lisinopril 10 MG Tab PO SCH (08:40)
[2023-10-19] MEDS: Folic Acid 1 MG Tab PO SCH (08:41)
[2023-10-19] MEDS: PHENobarbital 64.8 MG Tab PO PRN (12:25)
[2023-10-19] MEDS: Calcium Gluconate 1 GM in Sodium Chloride 0.9% 100 ML IV SCH (13:34)
[2023-10-19] MEDS: Loperamide 2 MG Cap PO PRN (21:23)
[2023-10-20 15:11] VITALS: BP 102/87; PULSE 64
== END 2023-10-20 13:30 | disposition home or self-care (01) | DRG 897 ==
LOC: DL.ED 10:31 → DL.MS 12:31
PROVIDERS: ADMIT Internal Medicine; ATTEND Internal Medicine
DX: F10.930 Alcohol use, unspecified with withdrawal, uncomplicated (principal); I10 Essential (primary) hypertension; F10.139 Alcohol abuse with withdrawal, unspecified; Z68.41 Body mass index [BMI] 40.0-44.9, adult; E87.20 Acidosis, unspecified; D68.9 Coagulation defect, unspecified; E78.5 Hyperlipidemia, unspecified; J45.909 Unspecified asthma, uncomplicated; G89.29 Other chronic pain; K70.10 Alcoholic hepatitis without ascites; M54.9 Dorsalgia, unspecified; F32.A Depression, unspecified; E86.0 Dehydration; F41.9 Anxiety disorder, unspecified; K29.20 Alcoholic gastritis without bleeding; R73.9 Hyperglycemia, unspecified; E66.01 Morbid (severe) obesity due to excess calories; E83.42 Hypomagnesemia; E80.6 Other disorders of bilirubin metabolism; D69.6 Thrombocytopenia, unspecified; Z90.710 Acquired absence of both cervix and uterus; Z90.721 Acquired absence of ovaries, unilateral; Z87.891 Personal history of nicotine dependence; Z91.011 Allergy to milk products; Z79.82 Long term (current) use of aspirin; Z79.899 Other long term (current) drug therapy
CPT/HCPCS: 36415; 80053; 80305; 80307; 81001; 82150; 83605; 83690; 83735; 84484; 85025; 85610; 86140; 93005; 93010; 96365; 96367; 96375; 99284; 99285; J2060; J2405; J3411; J3475; J7120; A9270-GY; J0612; J1885; J2470; J2560; J3360; J3490; J7030

== ENCOUNTER 2024-01-11 10:31 | Inpatient (IN) | payer MEDICAID ==
[2024-01-11 10:40] LABS: BASOPHILS PERCENT AUTO 0.3 % (0.0-1.0); EOSINOPHILS PERCENT AUTO 0.7 % (1.0-3.0); HEMATOCRIT 36.5 % (37.0-47.0); HEMOGLOBIN 12.4 g/dL (12.0-16.0); MEAN CORPUSCULAR HEMOGLOBIN 32.5 pg (27.0-34.0); MEAN CORPUSCULAR VOLUME 95.5 fL (80-100); MONOCYTES PERCENT AUTO 10.3 % (2-8); NEUTROPHILS PERCENT AUTO 74.7 % (42.2-75.2); PLATELET COUNT,PLT 137 10^3/uL (150-450); RED BLOOD CELL COUNT 3.82 10^6/uL (4.2-5.4); WHITE BLOOD CELL COUNT,WBC 10.9 10^3/uL (5.0-10.0)
[2024-01-11 11:03] LABS: ALANINE AMINOTRANSFERASE,ALT 65 U/L (14-59); ALBUMIN 2.7 g/dL (3.4-5.0); ALKALINE PHOSPHATASE 145 U/L (46-116); ASPARTATE AMNIOTRANSFERASE,AST 220 U/L (15-37); BLOOD UREA NITROGEN,BUN 10 mg/dL (7-18); BUN/CREATININE RATIO 6.6 (No establ ref range); CALCIUM 7.2 mg/dL (8.5-10.1); CARBON DIOXIDE,CO2 21 mmol/L (21-32); CHLORIDE,CL 92 mmol/L (98-107); CREATININE 1.51 mg/dL (0.55-1.02); EST CRCL DRUG DOSING (CG) 45.01 mL/min; GLUCOSE RANDOM 102 mg/dL (70-99); SODIUM,NA 135 mmol/L (136-145)
[2024-01-11 11:04] LABS: A/G RATIO 0.63; ESTIMATED GFR 45 mL/min (>=60)
[2024-01-11 11:11] LABS: ETHANOL BLOOD MEDICAL < 3 mg/dL (0); MAGNESIUM 0.7 mg/dL (1.8-2.4)
[2024-01-11] MEDS: fentaNYL 100 MCG/2 ML SDV IVPUSH ONE ×2 (11:21→13:58)
[2024-01-11] MEDS: Magnesium Sulfate/Water Premix 4 GM in Premix Bag 1 BAG IV ONE (11:21)
[2024-01-11] MEDS: Sodium Chloride 0.9% 10 ML Syringe FLUSH PRN (11:21)
[2024-01-11] MEDS: Magnesium Sulfate/Water Premix 100 ML ONE (11:23)
[2024-01-11] MEDS: Ondansetron 4 MG/2 ML SDV IVPUSH ONE (11:36)
[2024-01-11] MEDS: Iopamidol 612 MG/ML 100 ML Bottle IVPUSH ONE (11:51)
[2024-01-11] MEDS: Ondansetron 4 MG/2 ML SDV ONE (12:09)
[2024-01-11] MEDS: Sodium Chloride 0.9% 1,000 ML IV ONE (12:11)
[2024-01-11] MEDS: Thiamine 100 MG in Sodium Chloride 0.9% 100 ML IV ONE (12:46)
[2024-01-11 13:30] LABS: A/G RATIO 0.66; ALBUMIN 2.5 g/dL (3.4-5.0); ANION GAP 15.4 mEq/L (7-13); BILIRUBIN TOTAL 5.2 mg/dL (0.2-1.0); BUN/CREATININE RATIO 6.9 (No establ ref range); CALCIUM 6.8 mg/dL (8.5-10.1); CREATININE 1.31 mg/dL (0.55-1.02); EST CRCL DRUG DOSING (CG) 51.88 mL/min; MAGNESIUM 2.1 mg/dL (1.8-2.4); PROTEIN TOTAL,TP 6.3 g/dL (6.4-8.2)
[2024-01-11 13:44] LABS: POTASSIUM,K 2.4 mmol/L (3.5-5.1)
[2024-01-11 13:58] LABS: APPEARANCE,URINE SLIGHTLY CLOUDY (CLEAR); BILIRUBIN,URINE SMALL (NEGATIVE); COLOR,URINE YELLOW (YELLOW); GLUCOSE,URINE NEGATIVE (NEGATIVE); KETONES,URINE NEGATIVE (NEGATIVE); LEUKOCYTE ESTERASE,URINE SMALL (NEGATIVE); NITRITE,URINE POSITIVE (NEGATIVE); OCCULT BLOOD,URINE TRACE-INTACT (NEGATIVE); PH,URINE 7.5 (5.0-9.0); PROTEIN,URINE 30 (NEGATIVE)
[2024-01-11 14:02] LABS: AMPHETAMINES,URINE POSITIVE (NEGATIVE); BARBITURATES,URINE NEGATIVE (NEGATIVE); BENZODIAZEPINE,URINE NEGATIVE (NEGATIVE); MDMA (ECSTASY), URINE NEGATIVE (NEGATIVE); METHADONE,URINE NEGATIVE (NEGATIVE); METHAMPHETAMINES,URINE POSITIVE (NEGATIVE); OPIATES,URINE NEGATIVE (NEGATIVE); OXYCODONE,URINE NEGATIVE (NEGATIVE); PHENCYCLIDINE,URINE NEGATIVE (NEGATIVE); TCA,URINE NEGATIVE (NEGATIVE)
[2024-01-11] MEDS: Potassium Chloride 10 MEQ Tab.ER PO ONE (14:04)
[2024-01-11 14:12] LABS: BACTERIA,URINE MANY /HPF (0-FEW/HPF); EPITHELIAL CELLS,URINE FEW /HPF (NOT SEEN); RBC,URINE 0-5 /HPF (0-5); WBC,URINE 75-100 /HPF (0-5/HPF)
[2024-01-11 17:10] LABS: POTASSIUM,K 3.4 mmol/L (3.5-5.1)
[2024-01-11] MEDS ORDERED: Lactated Ringers 1,000 ML IV SCH (17:45)
[2024-01-11] MEDS ORDERED: Naloxone 2 MG/2 ML Syringe IVPUSH PRN (18:31)
[2024-01-11] MEDS ORDERED: Polyethylene Glycol 3350 Powder 17 GM Packet PO PRN (18:31)
[2024-01-11] MEDS ORDERED: Ondansetron 4 MG/2 ML SDV IVPUSH PRN (18:31)
[2024-01-11] MEDS ORDERED: HYDROmorphone 0.5 MG/0.5 ML Syringe IVPUSH PRN (18:31)
[2024-01-11] MEDS ORDERED: Acetaminophen 325 MG Tab PO PRN (18:31)
[2024-01-11] MEDS ORDERED: Sennosides/Docusate Sodium 50-8.6 MG Tab PO PRN (18:31)
[2024-01-11] MEDS ORDERED: Albuterol/Ipratropium 3.0-0.5 MG/3 ML Neb Soln NEB PRN (18:31)
[2024-01-11] MEDS ORDERED: Metoclopramide 10 MG/2 ML SDV IV PRN (18:31)
[2024-01-11] MEDS ORDERED: Magnesium Hydroxide 400 MG/5 ML Susp 30 ML Cup PO PRN (18:31)
[2024-01-11] MEDS: cefTRIAXone 1 GM Vial IVPUSH ONE ×2 (19:46→19:49)
[2024-01-11] MEDS: MVI, Adult with Vitamin K 10 ML, Folic Acid 1 MG, Thiamine 100 MG in Lactated Ringers 1... IV ONE (19:47)
[2024-01-11] MEDS: Pantoprazole 40 MG Vial IVPUSH ONE (19:48)
[2024-01-11] MEDS: diphenhydrAMINE 50 MG/ML SDV IVPUSH ONE (19:48)
[2024-01-11] MEDS: Dexamethasone 4 MG/ML SDV IVPUSH ONE (19:49)
[2024-01-11] MEDS: Sucralfate 1 GM Tab PO SCH (21:09)
[2024-01-11] MEDS: Gabapentin 300 MG Cap PO SCH (21:09)
[2024-01-11] MEDS: Loperamide 2 MG Cap PO PRN (21:09)
[2024-01-11] MEDS: Calcium Gluconate 2 GM in Sodium Chloride 0.9% 100 ML IV ONE (21:14)
[2024-01-11] MEDS: Aspirin 81 MG Tab.Chew PO ONE (21:15)
[2024-01-11] MEDS: Sodium Chloride 0.9% 1,000 ML IV SCH (23:56)
[2024-01-12 06:36] LABS: HEMATOCRIT 34.6 % (37.0-47.0); HEMOGLOBIN 11.6 g/dL (12.0-16.0); LYMPHOCYTES PERCENT AUTO 9.2 % (20.5-50.1); MEAN CORPUSCULAR HGB CONC 33.5 g/dL (33.0-35.0); MEAN CORPUSCULAR VOLUME 98.3 fL (80-100); MONOCYTES PERCENT AUTO 3.8 % (2-8); PLATELET COUNT,PLT 111 10^3/uL (150-450); RED BLOOD CELL COUNT 3.52 10^6/uL (4.2-5.4); WHITE BLOOD CELL COUNT,WBC 7.1 10^3/uL (5.0-10.0)
[2024-01-12 06:55] LABS: ALANINE AMINOTRANSFERASE,ALT 57 U/L (14-59); ALBUMIN 2.6 g/dL (3.4-5.0); ALKALINE PHOSPHATASE 135 U/L (46-116); ANION GAP 12.8 mEq/L (7-13); ASPARTATE AMNIOTRANSFERASE,AST 170 U/L (15-37); BILIRUBIN TOTAL 4.7 mg/dL (0.2-1.0); BLOOD UREA NITROGEN,BUN 9 mg/dL (7-18); BUN/CREATININE RATIO 8.2 (No establ ref range); CALCIUM 7.3 mg/dL (8.5-10.1); CARBON DIOXIDE,CO2 29 mmol/L (21-32); CHLORIDE,CL 97 mmol/L (98-107); CHOLESTEROL HDL 17 mg/dL (40-59); CHOLESTEROL LDL CALCULATED 71 mg/dL (0-100); CHOLESTEROL TOTAL 104 mg/dL (0-199); CREATINE KINASE,CK 691 U/L (16-191); EST CRCL DRUG DOSING (CG) 61.79 mL/min; GLUCOSE RANDOM 121 mg/dL (70-99); MAGNESIUM 1.4 mg/dL (1.8-2.4); POTASSIUM,K 3.8 mmol/L (3.5-5.1); PROTEIN TOTAL,TP 6.6 g/dL (6.4-8.2); SODIUM,NA 135 mmol/L (136-145); TRIGLYCERIDES 78 mg/dL (0-149)
[2024-01-12 06:58] LABS: A/G RATIO 0.65; C-REACTIVE PROTEIN < 0.50 ng/dL (<=0.50); ESTIMATED GFR 66 mL/min (>=60)
[2024-01-12] MEDS: Calcium Carbonate/Vitamin D3 1250 MG-5 MCG Tab PO SCH (08:49)
[2024-01-12] MEDS: Saccharomyces Boulardii (Probiotic) 250 MG Cap PO SCH (08:49)
[2024-01-12] MEDS: Thiamine 100 MG Tab PO SCH (08:50)
[2024-01-12] MEDS: Folic Acid 1 MG Tab PO SCH (08:50)
[2024-01-12] MEDS: Aspirin 81 MG Tab.Chew PO ONE (08:50)
[2024-01-12] MEDS: Multivitamins with Iron/Calcium/Folic Acid/Minerals Tab PO SCH (08:50)
[2024-01-12] MEDS: cefTRIAXone 1 GM Vial IVPUSH SCH (08:51)
[2024-01-12] MEDS: Enoxaparin 40 MG/0.4 ML Syringe SUBCUT SCH (08:51)
[2024-01-12] MEDS: Calcium Gluconate 2 GM in Sodium Chloride 0.9% 100 ML IV ONE (12:19)
[2024-01-12] MEDS: Sodium Chloride 0.9% 1,000 ML IV SCH (13:56)
[2024-01-12] MEDS: Magnesium Sulfate/Water Premix 2 GM in Premix Bag 1 BAG IV ONE (13:56)
[2024-01-12] MEDS: Gabapentin 300 MG Cap PO SCH (13:57)
[2024-01-13 06:57] LABS: BASOPHILS PERCENT AUTO 0.1 % (0.0-1.0); EOSINOPHILS PERCENT AUTO 1.8 % (1.0-3.0); HEMOGLOBIN 10.6 g/dL (12.0-16.0); LYMPHOCYTES PERCENT AUTO 21.4 % (20.5-50.1); MEAN CORPUSCULAR HEMOGLOBIN 33.1 pg (27.0-34.0); MEAN CORPUSCULAR HGB CONC 33.1 g/dL (33.0-35.0); MONOCYTES PERCENT AUTO 13.6 % (2-8); NEUTROPHILS PERCENT AUTO 63.1 % (42.2-75.2); PLATELET COUNT,PLT 111 10^3/uL (150-450); WHITE BLOOD CELL COUNT,WBC 7.4 10^3/uL (5.0-10.0)
[2024-01-13 07:33] LABS: ALANINE AMINOTRANSFERASE,ALT 55 U/L (14-59); ALBUMIN 2.3 g/dL (3.4-5.0); ALKALINE PHOSPHATASE 133 U/L (46-116); ANION GAP 7.7 mEq/L (7-13); ASPARTATE AMNIOTRANSFERASE,AST 164 U/L (15-37); BILIRUBIN TOTAL 3.2 mg/dL (0.2-1.0); BLOOD UREA NITROGEN,BUN 10 mg/dL (7-18); BUN/CREATININE RATIO 10.3 (No establ ref range); CALCIUM 7.2 mg/dL (8.5-10.1); CARBON DIOXIDE,CO2 32 mmol/L (21-32); CHLORIDE,CL 99 mmol/L (98-107); CREATINE KINASE,CK 266 U/L (16-191); CREATININE 0.97 mg/dL (0.55-1.02); EST CRCL DRUG DOSING (CG) 70.07 mL/min; GLUCOSE RANDOM 95 mg/dL (70-99); MAGNESIUM 1.4 mg/dL (1.8-2.4); POTASSIUM,K 3.7 mmol/L (3.5-5.1); SODIUM,NA 135 mmol/L (136-145)
[2024-01-13 07:34] LABS: A/G RATIO 0.62; C-REACTIVE PROTEIN < 0.50 ng/dL (<=0.50); ESTIMATED GFR 76 mL/min (>=60)
[2024-01-13] MEDS: ACAMPROSATE CALCIUM 333 MG PO SCH (10:54)
[2024-01-13] MEDS: Acetaminophen/oxyCODONE 325-5 MG Tab PO PRN (12:55)
[2024-01-13] MEDS: Magnesium Oxide 400 MG Tab PO SCH (17:43)
[2024-01-13] MEDS: Sodium Chloride 0.9% 1,000 ML IV ONE (22:01)
[2024-01-13] MEDS: Midodrine 5 MG Tab PO PRN (22:20)
[2024-01-14 06:37] LABS: BASOPHILS PERCENT AUTO 0.4 % (0.0-1.0); EOSINOPHILS PERCENT AUTO 2.9 % (1.0-3.0); HEMATOCRIT 32.9 % (37.0-47.0); HEMOGLOBIN 10.8 g/dL (12.0-16.0); LYMPHOCYTES PERCENT AUTO 30.3 % (20.5-50.1); MEAN CORPUSCULAR HEMOGLOBIN 33.2 pg (27.0-34.0); MEAN CORPUSCULAR HGB CONC 32.8 g/dL (33.0-35.0); MEAN CORPUSCULAR VOLUME 101.2 fL (80-100); MONOCYTES PERCENT AUTO 17.3 % (2-8); NEUTROPHILS PERCENT AUTO 49.1 % (42.2-75.2); PLATELET COUNT,PLT 126 10^3/uL (150-450); RED BLOOD CELL COUNT 3.25 10^6/uL (4.2-5.4); WHITE BLOOD CELL COUNT,WBC 7.2 10^3/uL (5.0-10.0)
[2024-01-14 06:59] LABS: ALANINE AMINOTRANSFERASE,ALT 55 U/L (14-59); ALBUMIN 2.2 g/dL (3.4-5.0); ALKALINE PHOSPHATASE 141 U/L (46-116); ANION GAP 8.1 mEq/L (7-13); ASPARTATE AMNIOTRANSFERASE,AST 145 U/L (15-37); BILIRUBIN TOTAL 3.1 mg/dL (0.2-1.0); BLOOD UREA NITROGEN,BUN 9 mg/dL (7-18); BUN/CREATININE RATIO 10.8 (No establ ref range); CALCIUM 7.2 mg/dL (8.5-10.1); CARBON DIOXIDE,CO2 31 mmol/L (21-32); CHLORIDE,CL 99 mmol/L (98-107); CREATININE 0.83 mg/dL (0.55-1.02); EST CRCL DRUG DOSING (CG) 81.88 mL/min; GLUCOSE RANDOM 87 mg/dL (70-99); MAGNESIUM 1.2 mg/dL (1.8-2.4); POTASSIUM,K 4.1 mmol/L (3.5-5.1); PROTEIN TOTAL,TP 5.8 g/dL (6.4-8.2); SODIUM,NA 134 mmol/L (136-145)
[2024-01-14 07:01] LABS: A/G RATIO 0.61; ESTIMATED GFR 92 mL/min (>=60)
[2024-01-14 07:02] LABS: C-REACTIVE PROTEIN < 0.50 ng/dL (<=0.50)
[2024-01-14] MEDS: Pantoprazole 40 MG Tab.CR PO SCH (08:36)
[2024-01-14] MEDS: Magnesium Sulfate/Water Premix 2 GM in Premix Bag 1 BAG IV ONE ×2 (10:20→20:13)
[2024-01-14] MEDS: Gabapentin 300 MG Cap PO SCH (20:12)
[2024-01-14] MEDS: Temazepam 15 MG Cap PO PRN (20:12)
[2024-01-15 06:24] LABS: BASOPHILS PERCENT AUTO 0.6 % (0.0-1.0); EOSINOPHILS PERCENT AUTO 3.6 % (1.0-3.0); HEMATOCRIT 32.5 % (37.0-47.0); HEMOGLOBIN 10.7 g/dL (12.0-16.0); LYMPHOCYTES PERCENT AUTO 25.8 % (20.5-50.1); MEAN CORPUSCULAR HEMOGLOBIN 33.3 pg (27.0-34.0); MEAN CORPUSCULAR HGB CONC 32.9 g/dL (33.0-35.0); MEAN CORPUSCULAR VOLUME 101.2 fL (80-100); MONOCYTES PERCENT AUTO 17.6 % (2-8); NEUTROPHILS PERCENT AUTO 52.4 % (42.2-75.2); PLATELET COUNT,PLT 136 10^3/uL (150-450); RED BLOOD CELL COUNT 3.21 10^6/uL (4.2-5.4); WHITE BLOOD CELL COUNT,WBC 6.4 10^3/uL (5.0-10.0)
[2024-01-15 06:49] LABS: A/G RATIO 0.57; ALANINE AMINOTRANSFERASE,ALT 50 U/L (14-59); ALBUMIN 2.1 g/dL (3.4-5.0); ALKALINE PHOSPHATASE 125 U/L (46-116); ANION GAP 7.6 mEq/L (7-13); ASPARTATE AMNIOTRANSFERASE,AST 131 U/L (15-37); BLOOD UREA NITROGEN,BUN 6 mg/dL (7-18); BUN/CREATININE RATIO 8.3 (No establ ref range); C-REACTIVE PROTEIN < 0.50 ng/dL (<=0.50); CALCIUM 7.4 mg/dL (8.5-10.1); CARBON DIOXIDE,CO2 31 mmol/L (21-32); CHLORIDE,CL 99 mmol/L (98-107); CREATINE KINASE,CK 267 U/L (16-191); CREATININE 0.72 mg/dL (0.55-1.02); ESTIMATED GFR 109 mL/min (>=60); GLUCOSE RANDOM 92 mg/dL (70-99); MAGNESIUM 1.8 mg/dL (1.8-2.4); POTASSIUM,K 4.6 mmol/L (3.5-5.1); PROTEIN TOTAL,TP 5.8 g/dL (6.4-8.2); SODIUM,NA 133 mmol/L (136-145)
[2024-01-15 08:21] VITALS: BP 107/56; PULSE 64
[2024-01-15] MEDS: Modafinil 100 MG Tab PO SCH (09:07)
== END 2024-01-15 11:28 | disposition home or self-care (01) | DRG 690 ==
LOC: DL.ED 10:31 → DL.MS 17:50
PROVIDERS: ADMIT Internal Medicine; ATTEND Internal Medicine
DX: N30.00 Acute cystitis without hematuria (principal); E87.0 Hyperosmolality and hypernatremia; N17.9 Acute kidney failure, unspecified; Z68.41 Body mass index [BMI] 40.0-44.9, adult; E87.20 Acidosis, unspecified; F10.139 Alcohol abuse with withdrawal, unspecified; E66.813 Obesity, class 3; K70.10 Alcoholic hepatitis without ascites; E83.51 Hypocalcemia; E83.42 Hypomagnesemia; E87.6 Hypokalemia; E78.5 Hyperlipidemia, unspecified; G89.29 Other chronic pain; G62.9 Polyneuropathy, unspecified; F41.9 Anxiety disorder, unspecified; F32.A Depression, unspecified; D69.6 Thrombocytopenia, unspecified; M54.9 Dorsalgia, unspecified; H54.7 Unspecified visual loss; I10 Essential (primary) hypertension; J45.909 Unspecified asthma, uncomplicated; M54.2 Cervicalgia; F17.210 Nicotine dependence, cigarettes, uncomplicated; Z88.8 Allergy status to other drugs, medicaments and biological substances; Z90.710 Acquired absence of both cervix and uterus; Z90.721 Acquired absence of ovaries, unilateral; Z79.899 Other long term (current) drug therapy
CPT/HCPCS: 36415; 70450; 72125; 74177; 80053; 80061; 80305-QW; 80307; 81001; 82550; 83036; 83605; 83735; 84132; 84484; 85025; 86140; 87086; 87088; 87186; 93005; 93010; 93306; 96365; 96367; 96375; 99223; 99232; 99238; 99284; 99285-25; A9270-GY; J0612; J0696; J1100; J1200; J1650; J2405; J2470; J3010; J3411; J3475; J3490; J7030; J7120; Q9967

== ENCOUNTER 2024-09-30 16:36 | Emergency (ER) | payer MEDICAID ==
[2024-09-30] MEDS ORDERED: Sodium Chloride 0.9% 10 ML Syringe FLUSH PRN (16:37)
[2024-09-30 17:03] LABS: BASOPHILS PERCENT AUTO 0.6 % (0.0-1.0); EOSINOPHILS PERCENT AUTO 7.1 % (1.0-3.0); LYMPHOCYTES PERCENT AUTO 28.8 % (20.5-50.1); MONOCYTES PERCENT AUTO 10.4 % (2-8); NEUTROPHILS PERCENT AUTO 53.1 % (42.2-75.2); PLATELET COUNT,PLT 141 10^3/uL (150-450); RED BLOOD CELL COUNT 3.52 10^6/uL (4.2-5.4); WHITE BLOOD CELL COUNT,WBC 6.3 10^3/uL (5.0-10.0)
[2024-09-30 17:18] LABS: INR 1.1 (0.9-1.2)
[2024-09-30 17:24] LABS: A/G RATIO 0.74; ALANINE AMINOTRANSFERASE,ALT 20 U/L (14-59); ASPARTATE AMNIOTRANSFERASE,AST 35 U/L (15-37); BILIRUBIN TOTAL 0.5 mg/dL (0.2-1.0); BLOOD UREA NITROGEN,BUN 17 mg/dL (7-18); CARBON DIOXIDE,CO2 27 mmol/L (21-32); CHLORIDE,CL 105 mmol/L (98-107); CREATININE 0.87 mg/dL (0.55-1.02); EST CRCL DRUG DOSING (CG) 77.35 mL/min; ESTIMATED GFR 86 mL/min (>=60); GLUCOSE RANDOM 85 mg/dL (70-99); POTASSIUM,K 4.3 mmol/L (3.5-5.1); PROTEIN TOTAL,TP 7.5 g/dL (6.4-8.2); SODIUM,NA 138 mmol/L (136-145)
[2024-09-30 17:29] LABS: LACTIC ACID 1.3 mmol/L (0.4-2.0)
[2024-09-30 17:56] VITALS: BP 134/77; PULSE 66
== END 2024-09-30 17:49 | disposition home or self-care (01) ==
LOC: DL.ED 16:36
DX: K92.2 Gastrointestinal hemorrhage, unspecified (principal); I10 Essential (primary) hypertension; Z90.710 Acquired absence of both cervix and uterus; Z91.011 Allergy to milk products; Z79.899 Other long term (current) drug therapy
CPT/HCPCS: 36415; 80053; 83605; 83735; 85025; 85610; 86140; 99284; 99285

== ENCOUNTER 2024-10-15 06:55 | Day surgery (SDC) | payer MEDICAID ==
[~2024-10-15 06:55] MED LIST changes: -Cephalexin 500 MG Cap PO ONE; +Propofol 200 MG/20 ML SDV ONE; -Sulfamethoxazole/Trimethoprim 800-160 MG Tab PO ONE; -Take Home: Cephalexin 500 MG Cap, 6 Cap Pack PO ONE; -Take Home: Sulfamethoxazole/Trimethoprim 800-160 MG Tab, 6 Tab Pack PO ONE
[2024-10-15] MEDS ORDERED: Propofol 200 MG/20 ML SDV IV ONE (06:56)
[2024-10-15] MEDS ORDERED: Lactated Ringers 1,000 ML IV ONE (06:56)
[2024-10-15] MEDS: Lactated Ringers 1,000 ML IV SCH (07:24)
[2024-10-15 08:37] VITALS: BP 132/51; PULSE 61
== END 2024-10-15 09:09 | disposition home or self-care (01) ==
LOC: DL.ENDO 06:55
PROVIDERS: ATTEND Internal Medicine Gastroenterology
DX: K29.50 Unspecified chronic gastritis without bleeding (principal); D64.9 Anemia, unspecified; R10.13 Epigastric pain; I10 Essential (primary) hypertension; E66.09 Other obesity due to excess calories; Z88.8 Allergy status to other drugs, medicaments and biological substances; Z68.42 Body mass index [BMI] 45.0-49.9, adult
CPT/HCPCS: 43239; J2003; J2704; J7120; 00731

== ENCOUNTER 2024-10-19 05:25 | Day surgery (SDC) | payer MEDICAID ==
[2024-10-19] MEDS ORDERED: Propofol 200 MG/20 ML SDV ONE ×2 (05:38→06:36)
[2024-10-19] MEDS: Lactated Ringers 1,000 ML IV SCH (05:53)
[2024-10-19 07:06] VITALS: PULSE 63
[2024-10-19 07:46] VITALS: BP 147/73
== END 2024-10-19 07:50 | disposition home or self-care (01) ==
LOC: DL.ENDO 05:25
PROVIDERS: ATTEND Internal Medicine Gastroenterology
DX: K62.89 Other specified diseases of anus and rectum (principal); K62.5 Hemorrhage of anus and rectum; D64.9 Anemia, unspecified; E66.09 Other obesity due to excess calories; Z68.42 Body mass index [BMI] 45.0-49.9, adult
CPT/HCPCS: 45380; J7120; 00811

== ENCOUNTER 2024-12-06 00:10 | Emergency (ER) | payer MEDICAID ==
[2024-12-06 00:29] VITALS: BP 109/82; PULSE 118
== END 2024-12-06 00:38 | disposition left against medical advice (07) ==
LOC: DL.ED 00:10
DX: S82.202A Unspecified fracture of shaft of left tibia, initial encounter for closed fracture (principal); S82.402A Unspecified fracture of shaft of left fibula, initial encounter for closed fracture; F10.129 Alcohol abuse with intoxication, unspecified; I10 Essential (primary) hypertension; Z91.011 Allergy to milk products; Z79.899 Other long term (current) drug therapy; Z90.710 Acquired absence of both cervix and uterus; X58.XXXA Exposure to other specified factors, initial encounter
CPT/HCPCS: 99283; 99284

== ENCOUNTER 2024-12-06 22:10 | Inpatient (IN) | payer MEDICAID ==
[2024-12-06] MEDS ORDERED: Sodium Chloride 0.9% 10 ML Syringe FLUSH PRN (22:24)
[2024-12-06 23:08] LABS: BASOPHILS PERCENT AUTO 0.4 % (0.0-1.0); EOSINOPHILS PERCENT AUTO 1.0 % (1.0-3.0); LYMPHOCYTES PERCENT AUTO 37.8 % (20.5-50.1); MONOCYTES PERCENT AUTO 7.3 % (2-8); NEUTROPHILS PERCENT AUTO 53.5 % (42.2-75.2); PLATELET COUNT,PLT 101 10^3/uL (150-450); RED BLOOD CELL COUNT 4.46 10^6/uL (4.2-5.4); WHITE BLOOD CELL COUNT,WBC 7.3 10^3/uL (5.0-10.0)
[2024-12-06 23:23] LABS: A/G RATIO 0.8; ALANINE AMINOTRANSFERASE,ALT 37.0 U/L (14-59); ASPARTATE AMNIOTRANSFERASE,AST 95.0 U/L (15-37); BILIRUBIN TOTAL 0.9 mg/dL (0.2-1.0); BLOOD UREA NITROGEN,BUN 22.0 mg/dL (7-18); CARBON DIOXIDE,CO2 24.0 mmol/L (21-32); CHLORIDE,CL 94.0 mmol/L (98-107); CREATININE 4.41 mg/dL (0.55-1.02); EST CRCL DRUG DOSING (CG) 14.64 mL/min; GLUCOSE RANDOM 127.0 mg/dL (70-99); POTASSIUM,K 2.8 mmol/L (3.5-5.1); PROTEIN TOTAL,TP 8.5 g/dL (6.4-8.2); SODIUM,NA 135.0 mmol/L (136-145)
[2024-12-06 23:24] LABS: ESTIMATED GFR 12.0 mL/min (>=60); ETHANOL BLOOD MEDICAL 329.0 mg/dL (0)
[2024-12-07] MEDS: Magnesium Sulfate 2 GM/50 mL 2 GM in Premix Bag 1 BAG IV ONE (00:11)
[2024-12-07] MEDS: Potassium Chloride 10 MEQ Tab.ER PO ONE (01:11)
[2024-12-07] MEDS: Lactated Ringers 1,000 ML IV ONE (04:04)
[2024-12-07 04:36] LABS: BLOOD UREA NITROGEN,BUN 12.0 mg/dL (7-18); CARBON DIOXIDE,CO2 15.0 mmol/L (21-32); CHLORIDE,CL 100.0 mmol/L (98-107); CREATININE 1.84 mg/dL (0.55-1.02); EST CRCL DRUG DOSING (CG) 35.1 mL/min; ESTIMATED GFR 35.0 mL/min (>=60); GLUCOSE RANDOM 68.0 mg/dL (70-99); POTASSIUM,K 3.5 mmol/L (3.5-5.1); SODIUM,NA 135.0 mmol/L (136-145)
[2024-12-07] MEDS: Magnesium Sulfate 4 GM/100 mL 4 GM in Premix Bag 1 BAG IV ONE (05:22)
[2024-12-07] MEDS ORDERED: Sodium Chloride 0.9% 10 ML Syringe FLUSH PRN (05:34)
[2024-12-07] MEDS ORDERED: Albuterol 0.083% 2.5 MG/3 ML Neb Soln NEB PRN (05:59)
[2024-12-07] MEDS: Sucralfate Suspension 1 GM/10 ML Cup PO SCH (06:41)
[2024-12-07 06:47] LABS: AMPHETAMINES,URINE NEGATIVE (NEGATIVE); BARBITURATES,URINE NEGATIVE (NEGATIVE); MDMA (ECSTASY), URINE NEGATIVE (NEGATIVE); METHAMPHETAMINES,URINE NEGATIVE (NEGATIVE); OPIATES,URINE NEGATIVE (NEGATIVE); OXYCODONE,URINE NEGATIVE (NEGATIVE); PHENCYCLIDINE,URINE NEGATIVE (NEGATIVE); TCA,URINE NEGATIVE (NEGATIVE)
[2024-12-07 07:06] LABS: IRON,FE 32.0 ug/dL (50-170); PERCENT FE SATURATION 13.5 % (20.0-50.0)
[2024-12-07 07:10] LABS: INR 1.3 (0.9-1.2)
[2024-12-07 07:20] LABS: FOLIC ACID 13.3 ng/mL (8.6-58.9)
[2024-12-07] MEDS: Potassium Chloride 10 MEQ Tab.ER PO SCH (08:48)
[2024-12-07] MEDS: Sodium Chloride 0.9% 10 ML Syringe FLUSH SCH (08:49)
[2024-12-07] MEDS: MVI, Adult with Vitamin K 10 ML, Folic Acid 1 MG, Thiamine 100 MG in Lactated Ringers 1... IV ONE ×2 (09:30→09:37)
[2024-12-08 06:17] LABS: BASOPHILS PERCENT AUTO 0.4 % (0.0-1.0); EOSINOPHILS PERCENT AUTO 4.1 % (1.0-3.0); LYMPHOCYTES PERCENT AUTO 26.4 % (20.5-50.1); MONOCYTES PERCENT AUTO 14.5 % (2-8); NEUTROPHILS PERCENT AUTO 54.6 % (42.2-75.2); PLATELET COUNT,PLT 77 10^3/uL (150-450); RED BLOOD CELL COUNT 3.86 10^6/uL (4.2-5.4); WHITE BLOOD CELL COUNT,WBC 4.8 10^3/uL (5.0-10.0)
[2024-12-08 06:31] LABS: BLOOD UREA NITROGEN,BUN 17.0 mg/dL (7-18); CARBON DIOXIDE,CO2 33.0 mmol/L (21-32); CHLORIDE,CL 100.0 mmol/L (98-107); CREATININE 0.74 mg/dL (0.55-1.02); EST CRCL DRUG DOSING (CG) 87.27 mL/min; GLUCOSE RANDOM 127.0 mg/dL (70-99); POTASSIUM,K 3.4 mmol/L (3.5-5.1); SODIUM,NA 137.0 mmol/L (136-145)
[2024-12-08 06:33] LABS: ESTIMATED GFR 105.0 mL/min (>=60)
[2024-12-08] MEDS: Magnesium Sulfate 2 GM/50 mL 2 GM in Premix Bag 1 BAG IV ONE ×2 (09:31→16:36)
[2024-12-08] MEDS: Potassium Chloride 10 MEQ Tab.ER PO ONE (11:11)
[2024-12-09 08:03] VITALS: BP 159/71
[2024-12-09 08:07] VITALS: PULSE 69
[2024-12-09 11:46] LABS: IONIZED CA@PH7.4 1.11 mmol/L (1.09-1.30); IONIZED CALCIUM 1.06 mmol/L (1.09-1.30)
== END 2024-12-09 08:15 | disposition home or self-care (01) | DRG 897 ==
LOC: DL.ED 22:10 → DL.MS 12-07 04:10
PROVIDERS: ADMIT Internal Medicine; ATTEND Internal Medicine
PROC: HZ2ZZZZ Detoxification Services for Substance Abuse Treatment (ICD-10-PCS; principal; 2024-12-07)
DX: F10.139 Alcohol abuse with withdrawal, unspecified (principal); N17.9 Acute kidney failure, unspecified; Z68.41 Body mass index [BMI] 40.0-44.9, adult; E87.6 Hypokalemia; W19.XXXA Unspecified fall, initial encounter; E83.42 Hypomagnesemia; R56.9 Unspecified convulsions; E83.51 Hypocalcemia; E86.0 Dehydration; K70.10 Alcoholic hepatitis without ascites; I10 Essential (primary) hypertension; J42 Unspecified chronic bronchitis; G35 Multiple sclerosis; F41.9 Anxiety disorder, unspecified; E66.813 Obesity, class 3; F17.200 Nicotine dependence, unspecified, uncomplicated; F32.A Depression, unspecified; G62.9 Polyneuropathy, unspecified; H54.7 Unspecified visual loss; E61.1 Iron deficiency; Z98.890 Other specified postprocedural states; Z90.710 Acquired absence of both cervix and uterus; Z79.899 Other long term (current) drug therapy
CPT/HCPCS: 36415; 70450; 80048; 80053; 80305-QW; 80307; 82272; 82330; 82607; 82746; 82947; 83540; 83550; 83690; 83735; 84425; 85025; 85610; 86850; 86900; 86901; 96365; 99284; 99285-25; A9270-GY; J0612; J1808; J2470; J3411; J3475; J3490; J7120; Q0138

== ENCOUNTER 2025-01-28 05:03 | Inpatient (IN) | payer MEDICAID ==
[2025-01-28 05:26] LABS: BASOPHILS PERCENT AUTO 0.3 % (0.0-1.0); EOSINOPHILS PERCENT AUTO 0.2 % (1.0-3.0); LYMPHOCYTES PERCENT AUTO 10.2 % (20.5-50.1); MONOCYTES PERCENT AUTO 12.7 % (2-8); NEUTROPHILS PERCENT AUTO 76.6 % (42.2-75.2); PLATELET COUNT,PLT 71 10^3/uL (150-450); RED BLOOD CELL COUNT 3.51 10^6/uL (4.2-5.4); WHITE BLOOD CELL COUNT,WBC 9.9 10^3/uL (5.0-10.0)
[2025-01-28] MEDS: MVI, Adult with Vitamin K 10 ML, Folic Acid 1 MG, Thiamine 100 MG in Lactated Ringers 1... IV ONE (05:42)
[2025-01-28 05:45] LABS: ALANINE AMINOTRANSFERASE,ALT 83 U/L (14-59); ASPARTATE AMNIOTRANSFERASE,AST 210 U/L (15-37); BILIRUBIN TOTAL 6.0 mg/dL (0.2-1.0); BLOOD UREA NITROGEN,BUN 34 mg/dL (7-18); CARBON DIOXIDE,CO2 21 mmol/L (21-32); CHLORIDE,CL 90 mmol/L (98-107); CREATININE 4.29 mg/dL (0.55-1.02); GLUCOSE RANDOM 74 mg/dL (70-99); POTASSIUM,K 3.0 mmol/L (3.5-5.1); PROTEIN TOTAL,TP 6.6 g/dL (6.4-8.2); SODIUM,NA 134 mmol/L (136-145)
[2025-01-28 05:46] LABS: A/G RATIO 1.00; ESTIMATED GFR 13 mL/min (>=60); ETHANOL BLOOD MEDICAL < 3 mg/dL (0)
[2025-01-28 05:49] LABS: LACTIC ACID 9.0 mmol/L (0.4-2.0)
[2025-01-28] MEDS: Potassium Chloride 20 MEQ in Premix Bag 1 BAG IV ONE ×2 (06:42→15:46)
[2025-01-28] MEDS: Calcium Gluconate 10% 1 GM/10 ML SDV IVPUSH ONE (06:43)
[2025-01-28] MEDS: Magnesium Sulfate 2 GM/50 mL 2 GM in Premix Bag 1 BAG IV ONE ×2 (06:43→15:44)
[2025-01-28 08:19] LABS: IRON,FE 66.0 ug/dL (50-170); PERCENT FE SATURATION 67.3 % (20.0-50.0)
[2025-01-28 08:58] LABS: LACTIC ACID 3.1 mmol/L (0.4-2.0)
[2025-01-28 09:01] LABS: FOLIC ACID > 20.0 ng/mL (8.6-58.9)
[2025-01-28] MEDS ORDERED: Ondansetron 4 MG/2 ML SDV IVPUSH PRN (10:14)
[2025-01-28] MEDS: Multivitamins with Iron/Calcium/Folic Acid/Minerals Tab PO SCH (10:52)
[2025-01-28 11:23] LABS: GAMMA GLUTAMYL TRANSFERASE,GGT 391 U/L (5-55)
[2025-01-28 11:47] LABS: APPEARANCE,URINE CLOUDY (CLEAR); GLUCOSE,URINE NEGATIVE (NEGATIVE); OCCULT BLOOD,URINE LARGE (NEGATIVE)
[2025-01-28 11:49] LABS: AMPHETAMINES,URINE NEGATIVE (NEGATIVE); BARBITURATES,URINE NEGATIVE (NEGATIVE); MDMA (ECSTASY), URINE NEGATIVE (NEGATIVE); METHAMPHETAMINES,URINE NEGATIVE (NEGATIVE); OPIATES,URINE POSITIVE (NEGATIVE); OXYCODONE,URINE NEGATIVE (NEGATIVE); PHENCYCLIDINE,URINE NEGATIVE (NEGATIVE); TCA,URINE NEGATIVE (NEGATIVE)
[2025-01-28 12:02] LABS: EPITHELIAL CELLS,URINE MODERATE /HPF (NOT SEEN)
[2025-01-28] MEDS: Heparin Sodium 5,000 Units/ML Vial SUBCUT SCH (13:11)
[2025-01-28 14:24] LABS: BASOPHILS PERCENT AUTO 0.2 % (0.0-1.0); EOSINOPHILS PERCENT AUTO 1.9 % (1.0-3.0); LYMPHOCYTES PERCENT AUTO 16.8 % (20.5-50.1); MONOCYTES PERCENT AUTO 11.5 % (2-8); NEUTROPHILS PERCENT AUTO 69.6 % (42.2-75.2); PLATELET COUNT,PLT 62 10^3/uL (150-450); RED BLOOD CELL COUNT 3.55 10^6/uL (4.2-5.4); WHITE BLOOD CELL COUNT,WBC 9.2 10^3/uL (5.0-10.0)
[2025-01-28 14:41] LABS: BLOOD UREA NITROGEN,BUN 33.0 mg/dL (7-18); CARBON DIOXIDE,CO2 23.0 mmol/L (21-32); CHLORIDE,CL 96.0 mmol/L (98-107); CREATININE 3.3 mg/dL (0.55-1.02); EST CRCL DRUG DOSING (CG) 19.57 mL/min; GLUCOSE RANDOM 119.0 mg/dL (70-99); POTASSIUM,K 3.2 mmol/L (3.5-5.1); SODIUM,NA 133.0 mmol/L (136-145)
[2025-01-28 14:44] LABS: ESTIMATED GFR 17.0 mL/min (>=60)
[2025-01-29 06:42] LABS: BASOPHILS PERCENT AUTO 0.4 % (0.0-1.0); EOSINOPHILS PERCENT AUTO 4.8 % (1.0-3.0); LYMPHOCYTES PERCENT AUTO 18.9 % (20.5-50.1); MONOCYTES PERCENT AUTO 15.7 % (2-8); NEUTROPHILS PERCENT AUTO 60.2 % (42.2-75.2); PLATELET COUNT,PLT 64 10^3/uL (150-450); RED BLOOD CELL COUNT 2.97 10^6/uL (4.2-5.4); WHITE BLOOD CELL COUNT,WBC 5.0 10^3/uL (5.0-10.0)
[2025-01-29 06:51] LABS: INR 2.2 (0.9-1.2)
[2025-01-29 07:14] LABS: ALANINE AMINOTRANSFERASE,ALT 65.0 U/L (14-59); ASPARTATE AMNIOTRANSFERASE,AST 154.0 U/L (15-37); BILIRUBIN DIRECT 2.8 mg/dL (0.0-0.2); BILIRUBIN INDIRECT 1.8; BILIRUBIN TOTAL 4.6 mg/dL (0.2-1.0); BLOOD UREA NITROGEN,BUN 33.0 mg/dL (7-18); CARBON DIOXIDE,CO2 24.0 mmol/L (21-32); CHLORIDE,CL 103.0 mmol/L (98-107); CREATININE 2.27 mg/dL (0.55-1.02); EST CRCL DRUG DOSING (CG) 28.45 mL/min; GLUCOSE RANDOM 114.0 mg/dL (70-99); PHOSPHORUS 1.7 mg/dL (2.6-4.7); POTASSIUM,K 2.7 mmol/L (3.5-5.1); PROTEIN TOTAL,TP 5.6 g/dL (6.4-8.2); SODIUM,NA 137.0 mmol/L (136-145); VANCOMYCIN RANDOM 4.6 ug/mL (No Normal Range)
[2025-01-29 07:15] LABS: A/G RATIO 0.7; ESTIMATED GFR 27.0 mL/min (>=60)
[2025-01-29] MEDS: Phosphorus #1 250 MG Tab PO SCH (11:04)
[2025-01-29] MEDS: Magnesium Sulfat/D5W 1GM/100ML 1 GM in Premix Bag 1 BAG IV ONE (11:08)
[2025-01-29] MEDS: Potassium Chloride 20 MEQ in Premix Bag 1 BAG IV ONE (11:10)
[2025-01-29] MEDS: Potassium Phosphates 21 MMOLE in Sodium Chloride 0.9% 500 ML IV ONE (14:59)
[2025-01-30 06:31] LABS: BASOPHILS PERCENT AUTO 0.2 % (0.0-1.0); EOSINOPHILS PERCENT AUTO 1.8 % (1.0-3.0); LYMPHOCYTES PERCENT AUTO 9.9 % (20.5-50.1); MONOCYTES PERCENT AUTO 14.9 % (2-8); NEUTROPHILS PERCENT AUTO 73.2 % (42.2-75.2); PLATELET COUNT,PLT 87 10^3/uL (150-450); RED BLOOD CELL COUNT 3.17 10^6/uL (4.2-5.4); WHITE BLOOD CELL COUNT,WBC 13.7 10^3/uL (5.0-10.0)
[2025-01-30 06:56] LABS: CREATININE 1.17 mg/dL (0.55-1.02); EST CRCL DRUG DOSING (CG) 55.19 mL/min; VANCOMYCIN RANDOM 8.7 ug/mL (No Normal Range)
[2025-01-30 06:57] LABS: ALANINE AMINOTRANSFERASE,ALT 76.0 U/L (14-59); ASPARTATE AMNIOTRANSFERASE,AST 175.0 U/L (15-37); BILIRUBIN DIRECT 2.4 mg/dL (0.0-0.2); BILIRUBIN INDIRECT 1.3; BILIRUBIN TOTAL 3.7 mg/dL (0.2-1.0); BLOOD UREA NITROGEN,BUN 30.0 mg/dL (7-18); CARBON DIOXIDE,CO2 28.0 mmol/L (21-32); CHLORIDE,CL 101.0 mmol/L (98-107); CREATININE 1.18 mg/dL (0.55-1.02); EST CRCL DRUG DOSING (CG) 54.73 mL/min; GLUCOSE RANDOM 108.0 mg/dL (70-99); PHOSPHORUS 1.8 mg/dL (2.6-4.7); POTASSIUM,K 3.8 mmol/L (3.5-5.1); PROTEIN TOTAL,TP 6.3 g/dL (6.4-8.2); SODIUM,NA 136.0 mmol/L (136-145)
[2025-01-30 07:00] LABS: A/G RATIO 0.62; ESTIMATED GFR 60.0 mL/min (>=60); ESTIMATED GFR 61.0 mL/min (>=60)
[2025-01-30] MEDS: Potassium Chloride 20 MEQ in Premix Bag 1 BAG IV ONE (09:30)
[2025-01-30] MEDS: Magnesium Sulfate 2 GM/50 mL 2 GM in Premix Bag 1 BAG IV ONE (10:32)
[2025-01-30] MEDS: Thiamine 200 MG/2 ML MDV IV SCH (10:33)
[2025-01-30] MEDS: Furosemide 20 MG/2 ML VIAL IVPUSH ONE (10:33)
[2025-01-30] MEDS: Potassium Phosphates 20 MMOLE in Sodium Chloride 0.9% 100 ML IV ONE (12:49)
[2025-01-30] MEDS: Potassium Chloride 10 MEQ Tab.ER PO SCH (19:08)
[2025-01-30 21:43] LABS: HAV AB IGM Negative (Negative); HBC IGM Negative (Negative); HEP B SURG AG Negative (Negative); HEP C AB BY CIA High Pos (Negative); HEP C AB BY CIA INDEX >11.00 IV
[2025-01-31 05:46] LABS: ALPHA-1-ANTITRYPSN 149 mg/dL (90-200)
[2025-01-31 06:30] LABS: PLATELET COUNT,PLT 104 10^3/uL (150-450); RED BLOOD CELL COUNT 3.21 10^6/uL (4.2-5.4); WHITE BLOOD CELL COUNT,WBC 5.5 10^3/uL (5.0-10.0)
[2025-01-31 06:41] LABS: LYMPHOCYTES PERCENT AUTO 24.0 % (20.5-50.1); NEUTROPHILS PERCENT AUTO 47.6 % (42.2-75.2)
[2025-01-31 06:42] LABS: BASOPHILS PERCENT AUTO 0.9 % (0.0-1.0); EOSINOPHILS PERCENT AUTO 4.2 % (1.0-3.0); MONOCYTES PERCENT AUTO 23.3 % (2-8)
[2025-01-31 06:45] LABS: INR 1.5 (0.9-1.2)
[2025-01-31 06:48] LABS: BLOOD UREA NITROGEN,BUN 22.0 mg/dL (7-18); CARBON DIOXIDE,CO2 30.0 mmol/L (21-32); CHLORIDE,CL 102.0 mmol/L (98-107); CREATININE 0.85 mg/dL (0.55-1.02); EST CRCL DRUG DOSING (CG) 75.97 mL/min; ESTIMATED GFR 89.0 mL/min (>=60); GLUCOSE RANDOM 94.0 mg/dL (70-99); PHOSPHORUS 2.6 mg/dL (2.6-4.7); POTASSIUM,K 4.2 mmol/L (3.5-5.1); SODIUM,NA 139.0 mmol/L (136-145)
[2025-01-31 07:18] LABS: EOSINOPHILS PERCENT MAN 4 % (1-3); LYMPHOCYTES PERCENT MAN 24 % (20-50); MONOCYTES PERCENT MAN 16 % (2-8); SEG NEUTROPHILS PERCENT MAN 56 % (42-75)
[2025-01-31 19:42] LABS: HEP C QNT BY NAAT (IU/mL) Not Detected; HEP C QNT BY NAAT (log IU/mL) Not Detected log IU/mL; HEP C QNT BY NAAT INTERP Not Detected (Not Detected)
[2025-02-01 06:37] LABS: EOSINOPHILS PERCENT AUTO 4.2 % (1.0-3.0); LYMPHOCYTES PERCENT AUTO 29.1 % (20.5-50.1); MONOCYTES PERCENT AUTO 28.5 % (2-8); NEUTROPHILS PERCENT AUTO 37.4 % (42.2-75.2); PLATELET COUNT,PLT 135 10^3/uL (150-450); RED BLOOD CELL COUNT 3.29 10^6/uL (4.2-5.4); WHITE BLOOD CELL COUNT,WBC 5.0 10^3/uL (5.0-10.0)
[2025-02-01 06:50] LABS: BASOPHILS PERCENT AUTO 0.8 % (0.0-1.0)
[2025-02-01 06:51] LABS: BLOOD UREA NITROGEN,BUN 17.0 mg/dL (7-18); CARBON DIOXIDE,CO2 33.0 mmol/L (21-32); CREATININE 0.63 mg/dL (0.55-1.02); EST CRCL DRUG DOSING (CG) 102.5 mL/min; GLUCOSE RANDOM 90.0 mg/dL (70-99)
[2025-02-01 06:56] LABS: CHLORIDE,CL 104.0 mmol/L (98-107); ESTIMATED GFR 115.0 mL/min (>=60); POTASSIUM,K 4.9 mmol/L (3.5-5.1); SODIUM,NA 139.0 mmol/L (136-145)
[2025-02-01] MEDS: Magnesium Sulf/Wat 4 GM/50 mL 4 GM in Premix Bag 1 BAG IV ONE (09:50)
[2025-02-01 11:35] VITALS: BP 134/64; PULSE 69
[2025-02-04 05:47] LABS: IONIZED CA@PH7.4 1.15 mmol/L (1.09-1.30); IONIZED CALCIUM 1.1 mmol/L (1.09-1.30)
[2025-02-04 22:43] LABS: HCV QNT BY NAAT (IU/ML) Not Detected; HCV QNT BY NAAT (LOG IU/ML) Not Detected log IU/mL; HCV QNT BY NAAT INTERP Not Detected (Not Detected)
== END 2025-02-01 13:25 | disposition home or self-care (01) | DRG 871 ==
LOC: DL.ED 05:03 → DL.MS 06:51
PROVIDERS: ADMIT Internal Medicine; ATTEND Internal Medicine
DX: A41.9 Sepsis, unspecified organism (principal); K72.00 Acute and subacute hepatic failure without coma; N17.9 Acute kidney failure, unspecified; E87.20 Acidosis, unspecified; E87.1 Hypo-osmolality and hyponatremia; Z68.43 Body mass index [BMI] 50.0-59.9, adult; H54.7 Unspecified visual loss; G62.9 Polyneuropathy, unspecified; F41.9 Anxiety disorder, unspecified; F32.A Depression, unspecified; E61.1 Iron deficiency; E86.0 Dehydration; E83.42 Hypomagnesemia; E87.6 Hypokalemia; D69.6 Thrombocytopenia, unspecified; I12.9 Hypertensive chronic kidney disease with stage 1 through stage 4 chronic kidney disease, or unspecified chronic kidney disease; N18.9 Chronic kidney disease, unspecified; R74.01 Elevation of levels of liver transaminase levels; E83.39 Other disorders of phosphorus metabolism; E83.51 Hypocalcemia; D64.9 Anemia, unspecified; G35.D Multiple sclerosis, unspecified; E66.01 Morbid (severe) obesity due to excess calories; Z98.890 Other specified postprocedural states; Z90.710 Acquired absence of both cervix and uterus; Z88.8 Allergy status to other drugs, medicaments and biological substances; Z79.899 Other long term (current) drug therapy
CPT/HCPCS: 36415; 70450; 70486; 71045; 72125; 80048; 80053; 80074; 80076; 80143; 80202; 80305-QW; 80307; 81001; 82103; 82140; 82272; 82330; 82565; 82607; 82746; 82977; 83540; 83550; 83605; 83630; 83690; 83735; 84100; 84145; 84703; 85025; 85610; 87040; 87045; 87046; 87086; 87088; 87186; 87493; 87522; 87899; 96365; 96375; 99285; 99285-25; A9270-GY; J0612; J0692; J1644; J1808; J1938; J2470; J3373; J3411; J3475; J3480; J3490; J7030; J7040; J7050; J7120